=== PATIENT | male | born 1960 | race Hispanic/Latino ===

== ENCOUNTER 2017-01-12 18:19 | Emergency (ER) | payer OTHER ==
[2017-01-12 18:19] VITALS: BMI 25.1
[2017-01-12 18:27] VITALS: BP 132/75; PULSE 74; RESP 18; TEMP 98.2; O2SAT 99
[2017-01-12] MEDS ORDERED: Tobramycin 0.3% OPHT SOLN OS STA (19:07)
--- NOTE | 2017-01-12 19:12 | ED PDOC ---
Arrival/HPI - General Chief Complaint: Eye Problem Time Seen by Provider: 01/12/17 18:47 Historian: Patient - History of Present Illness Narrative History of Present Illness (Text): 01/12/17 19:39 A 56 year old male, whose past medical history includes asthma, diabetes, hyperlipidemia and hypertension, presents to the emergency department complaining of irritation, redness and foreign body sensation to left upper eyelid. Patient reports he was working at home, chopping wood without protective eye wear and felt a piece of wood flew into his eye. Denies any discharge, decrease in vision, contacts. Patient denies any other complaints at this time. Symptom Onset: Sudden Symptom Course: Unchanged Activities at Onset: Light Modifying Factors (Text): none Past Medical History - Provider Review Nursing Documentation Reviewed: Yes - Infectious Disease Hx of Infectious Diseases: None - Tetanus Immunization Tetanus Immunization: Unknown - Cardiac Hx Angina: Yes Hx Hypertension: Yes - Pulmonary Hx Asthma: Yes - Neurological Hx Neurological Disorder: No Hx Alzheimer's Disease: No HX Cerebrovascular Accident: No Hx Dementia: No Hx Migraine: No Hx Parkinson's Disease: No Hx Seizures: No Hx Transient Ischemic Attacks (TIA): No - HEENT Hx HEENT Disorder: No Hx Blind: No Hx Cataracts: No Hx Deafness: No Hx Difficulty Chewing: No Hx Epistaxis: No Hx Glaucoma: No Hx Macular Degeneration: No - Renal Hx Renal Disorder: No Hx Renal Failure: No - Endocrine/Metabolic Hx Diabetes Mellitus Type 2: Yes Hx Hyperthyroidism: No Hx Hypothyroidism: No - Hematological/Oncological Hx Blood Disorders: No Hx Anemia: No Hx Cancer: No Hx Hepatitis A: No Hx Hepatitis B: No Hx Hepatitis C: No - Integumentary Hx Dermatological Disorder: No Hx Basal Cell Carcinoma: No Hx Eczema: No Hx Melanoma: No Hx Psoriasis: No Hx Squamous Cell Carcinoma: No - Musculoskeletal/Rheumatological Hx Herniated Disk: Yes (bulging disk pinched nerve) - Gastrointestinal Hx Gastrointestinal Disorders: No Hx Crohn's Disease: No Hx Diverticulitis: No Hx Gastroesophageal Reflux: No Hx Gastrointestinal Ulcer: No Hx Liver Failure: No - Genitourinary/Gynecological Hx Genitourinary Disorders: No Hx Hematuria: No Hx Incontinence: No Hx Prostate Problems: No Hx Sexually Transmitted Diseases: No Hx Urinary Tract Infection: No - Psychiatric Hx Anxiety: Yes Hx Depression: No Hx Emotional Abuse: No Hx Physical Abuse: No Hx Substance Use: No - Surgical History Hx Amputation: No Hx Appendectomy: Yes Hx Cardiac Catheterization: No Hx Cholecystectomy: No Hx Coronary Stent: No Hx Gastric Bypass Surgery: No Hx Hysterectomy: No Hx Joint Replacement: No Hx Kidney Transplant: No Hx Liver Transplant: No Hx Mastectomy: No Hx Open Heart Surgery: No Hx Orthopedic Surgery: No Hx Splenectomy: No Hx Valve Replacement: No - Anesthesia Hx Anesthesia: Yes Hx Anesthesia Reactions: No Hx Malignant Hyperthermia: No - Suicidal Assessment Feels Threatened In Home Enviroment: No Family/Social History - Physician Review Nursing Documentation Reviewed: Yes Family/Social History: No Known Family HX Smoking Status: Heavy Smoker > 10 Cigarettes Daily Hx Alcohol Use: No Hx Substance Use: No Hx Substance Use Treatment: Yes Allergies/Home Meds Allergies/Adverse Reactions: Allergies No Known Allergies Allergy (Verified 01/12/17 18:30) Home Medications: Home Meds Medication Instructions Recorded Confirmed Alprazolam [Xanax] 0.5 mg PO DAILY 11/05/15 04/28/16 Oxymorphone HCl [Oxymorphone HCl 30 mg PO DAILY 11/05/15 04/28/16 ER] Review of Systems - Physician Review All systems were reviewed & negative as marked: Yes - Review of Systems Constitutional: absent: Fevers Eyes: Other (irritation, redness and foreign body sensation to left upper eyelid ). absent: Vision Changes Neurological: absent: Headache Physical Exam Vital Signs Reviewed: Yes Vital Signs Temp Pulse Resp BP Pulse Ox 01/12/17 18:26 98.2 F 74 18 132/75 99 Temperature: Afebrile Blood Pressure: Normal Pulse: Regular Respiratory Rate: Normal Appearance: Positive for: Well-Appearing, Non-Toxic, Comfortable Pain Distress: Mild Mental Status: Positive for: Alert and Oriented X 3 - Systems Exam Head: Present: Atraumatic, Normocephalic Pupils: Present: PERRL Extroacular Muscles: Present: EOMI Conjunctiva: Present: Injected, Other (small foreign body inside the left upper eyelid; no corneal abrasion) Mouth: Present: Moist Mucous Membranes Neck: Present: Normal Range of Motion Upper Extremity: Present: Normal Inspection. No: Cyanosis, Edema Lower Extremity: Present: Normal Inspection. No: Edema Neurological: Present: GCS=15, CN II-XII Intact, Speech Normal Skin: Present: Warm, Dry, Normal Color. No: Rashes Psychiatric: Present: Alert, Oriented x 3, Normal Insight, Normal Concentration Medical Decision Making ED Course and Treatment: 01/12/17 19:36 Impression: A 56 year old male with irritation, redness and foreign body sensation to left upper eyelid. Plan: -- Tobrex -- Reassess and disposition Prior Visits: Notes and results from previous visits were reviewed. Patient was last seen in the emergency department on 04/28/16 for evaluation of right testicular pain radiating to groin region. Progress Notes: Small foreign body in left upper eyelid was removed with Q-tip by PA. On re-evaluation, patient feels better, reports no FB sensation to the L eye, and is in no acute distress. Patient in agreement with plan to be discharged home. Patient is stable for discharge. Patient was instructed to follow up with physician or return if symptoms worsen or new concerning symptoms arise. - Medication Orders Current Medication Orders: Discontinued Medications Tobramycin Sulfate (Tobrex 0.3% Ophth Soln) 2 drop OS STAT STA Stop: 01/12/17 19:08 Last Admin: 01/12/17 19:26 Dose: 2 drop - PA / INSPECTOR MISSILE / Resident Statement MD/DO has reviewed & agrees with the documentation as recorded. - Scribe Statement The provider has reviewed the documentation as recorded by the Angel Romero Provider Scribe Attestation: All medical record entries made by the Scribe were at my direction and personally dictated by me. I have reviewed the chart and agree that the record accurately reflects my personal performance of the history, physical exam, medical decision making, and the department course for this patient. I have also personally directed, reviewed, and agree with the discharge instructions and disposition. Disposition/Present on Arrival - Present on Arrival Any Indicators Present on Arrival: No History of DVT/PE: No History of Uncontrolled Diabetes: No Urinary Catheter: No History of Decub. Ulcer: No History Surgical Site Infection Following: None - Disposition Have Diagnosis and Disposition been Completed?: Yes Diagnosis: Eye foreign body Disposition: HOME/ ROUTINE Disposition Time: 19:10 Patient Plan: Discharge Condition: STABLE Discharge Instructions (ExitCare): Eye Foreign Body (ED) Print Language: BRUNEIAN Additional Instructions: Thank you for letting us take care of you today. You were treated for eye foreign body. The emergency medical care you received today was directed at your acute symptoms. Continue eye drops - tobramycin 2 drops to the L eye every 4 hours x 7 days. It may take several days for your symptoms to resolve. Return to the Emergency Department if your symptoms worsen, do not improve, or if you have any other problems. Please contact your doctor in 2 days for re-evaluation and follow up / or call one of the physicians/clinics you have been referred to that are listed on the Patient Visit Information form that is included in your discharge packet. Bring any paperwork you were given at discharge with you along with any medications you are taking to your follow up visit. Our treatment cannot replace ongoing medical care by a primary care provider (PCP) outside of the emergency department. Thank you for allowing the [facility] team to be part of your care today. Referrals: Grabiel Humphreys MD [Staff Provider] - Follow up with primary Forms: 9+ (Greenlandic), WORK NOTE
== END 2017-01-12 19:29 | disposition home or self-care (01) ==
LOC: ED 18:19
DX: T15.12XA Foreign body in conjunctival sac, left eye, initial encounter (principal); X58.XXXA Exposure to other specified factors, initial encounter; Y93.89 Activity, other specified; Y92.009 Unspecified place in unspecified non-institutional (private) residence as the place of occurrence of the external cause

== ENCOUNTER 2017-03-08 22:05 | Emergency (ER) | payer OTHER ==
[2017-03-08 22:10] VITALS: BMI 25.7
[2017-03-08 22:11] VITALS: TEMP 97.7
--- NOTE | 2017-03-08 22:42 | ED PDOC ---
Arrival/HPI - General Chief Complaint: Upper Extremity Problem/Injury Time Seen by Provider: 03/08/17 22:16 Historian: Patient - History of Present Illness Narrative History of Present Illness (Text): 03/08/17 22:41 A 56 year old male, whose past medical history includes hyperlipidemia, asthma, hypertension, and diabetes, presents to the emergency department complaining of right lower back pain for the past week and left forearm pain for the past 3 weeks. Denies any injury or falls. Denies lifting heavy objects. Patient reports painful to bend or lift arm. Denies having these symptoms in the past. Reports to taking oxycodone daily for pain. Patient denies any leg swelling, neck pain, shoulder pain or any other complaints at this time. Time/Duration: 1 week, < month Symptom Onset: Sudden Symptom Course: Unchanged Activities at Onset: Rest Context: Home Past Medical History - Provider Review Nursing Documentation Reviewed: Yes - Infectious Disease Hx of Infectious Diseases: None - Tetanus Immunization Tetanus Immunization: Unknown - Cardiac Hx Angina: Yes Hx Hypertension: Yes - Pulmonary Hx Asthma: Yes - Neurological Hx Neurological Disorder: No Hx Alzheimer's Disease: No HX Cerebrovascular Accident: No Hx Dementia: No Hx Migraine: No Hx Parkinson's Disease: No Hx Seizures: No Hx Transient Ischemic Attacks (TIA): No - HEENT Hx HEENT Disorder: No Hx Blind: No Hx Cataracts: No Hx Deafness: No Hx Difficulty Chewing: No Hx Epistaxis: No Hx Glaucoma: No Hx Macular Degeneration: No - Renal Hx Renal Disorder: No Hx Renal Failure: No - Endocrine/Metabolic Hx Diabetes Mellitus Type 2: No Hx Hyperthyroidism: No Hx Hypothyroidism: No - Hematological/Oncological Hx Blood Disorders: No Hx Anemia: No Hx Cancer: No Hx Hepatitis A: No Hx Hepatitis B: No Hx Hepatitis C: No - Integumentary Hx Dermatological Disorder: No Hx Basal Cell Carcinoma: No Hx Eczema: No Hx Melanoma: No Hx Psoriasis: No Hx Squamous Cell Carcinoma: No - Musculoskeletal/Rheumatological Hx Herniated Disk: Yes (bulging disk pinched nerve) - Gastrointestinal Hx Gastrointestinal Disorders: No Hx Crohn's Disease: No Hx Diverticulitis: No Hx Gastroesophageal Reflux: No Hx Gastrointestinal Ulcer: No Hx Liver Failure: No - Genitourinary/Gynecological Hx Genitourinary Disorders: No Hx Hematuria: No Hx Incontinence: No Hx Prostate Problems: No Hx Sexually Transmitted Diseases: No Hx Urinary Tract Infection: No - Psychiatric Hx Anxiety: Yes Hx Depression: No Hx Emotional Abuse: No Hx Physical Abuse: No Hx Substance Use: No - Surgical History Hx Amputation: No Hx Appendectomy: Yes Hx Cardiac Catheterization: No Hx Cholecystectomy: No Hx Coronary Stent: No Hx Gastric Bypass Surgery: No Hx Hysterectomy: No Hx Joint Replacement: No Hx Kidney Transplant: No Hx Liver Transplant: No Hx Mastectomy: No Hx Open Heart Surgery: No Hx Orthopedic Surgery: No Hx Splenectomy: No Hx Valve Replacement: No - Anesthesia Hx Anesthesia: Yes Hx Anesthesia Reactions: No Hx Malignant Hyperthermia: No - Suicidal Assessment Feels Threatened In Home Enviroment: No Family/Social History - Physician Review Nursing Documentation Reviewed: Yes Family/Social History: Other (nc) Smoking Status: Heavy Smoker > 10 Cigarettes Daily Hx Alcohol Use: No Hx Substance Use: No Hx Substance Use Treatment: Yes Allergies/Home Meds Allergies/Adverse Reactions: Allergies No Known Allergies Allergy (Verified 03/08/17 22:10) Home Medications: Home Meds Medication Instructions Recorded Confirmed Alprazolam [Xanax] 0.5 mg PO DAILY 11/05/15 03/08/17 Oxymorphone HCl [Oxymorphone HCl 30 mg PO DAILY 11/05/15 03/08/17 ER] Review of Systems - Physician Review All systems were reviewed & negative as marked: Yes - Review of Systems Constitutional: absent: Fevers Genitourinary Male: Other (no incontinence or saddle anesthesia). absent: Urinary Output Changes Musculoskeletal: Back Pain (right lower back pain), Other (left forearm pain; no shoulder pain; no leg swelling). absent: Neck Pain Neurological: absent: Focal Weakness Physical Exam Vital Signs Reviewed: Yes Vital Signs Temp Pulse Resp BP Pulse Ox 03/08/17 22:11 97.7 F 81 18 187/100 H 98 03/08/17 22:10 97.7 F 84 17 187/100 H 98 Appearance: Positive for: Well-Appearing, Non-Toxic, Comfortable Pain Distress: None Mental Status: Positive for: Alert and Oriented X 3 - Systems Exam Head: Present: Atraumatic, Normocephalic Pupils: Present: PERRL Extroacular Muscles: Present: EOMI Conjunctiva: Present: Normal Mouth: Present: Moist Mucous Membranes Neck: Present: Normal Range of Motion Respiratory/Chest: Present: Clear to Auscultation, Good Air Exchange. No: Respiratory Distress, Accessory Muscle Use Cardiovascular: Present: Regular Rate and Rhythm, Normal S1, S2. No: Murmurs Abdomen: Present: Normal Bowel Sounds. No: Tenderness, Distention, Peritoneal Signs Back: Present: Other (right lumbar lower thoracic paraspinous muscle tenderness) Upper Extremity: Present: NORMAL PULSES, Other (tenderness left brachial radialis muscle; normal sensation and strength; no induration; muscles soft). No: Cyanosis, Edema, Erythema Lower Extremity: Present: Normal Inspection. No: Edema Neurological: Present: GCS=15, CN II-XII Intact, Motor Func Grossly Intact, Normal Sensory Function, Other (no focal deficits) Skin: Present: Warm, Dry, Normal Color. No: Rashes Psychiatric: Present: Alert, Oriented x 3, Normal Insight, Normal Concentration Medical Decision Making ED Course and Treatment: 03/08/17 23:27 EKG: Ordered, reviewed, and independently interpreted the EKG. Rate : 70 BPM Rhythm : NSR Interpretation : normal axis, no acute ischemia 03/08/17 23:28 Chest xray: No acute process, as read by me. Radiology of left forearm: No acute fracture, as read by me. 03/08/17 23:48 disc results w pt who is resting quietly in no distress. disc importance of close follow up with pmd and also rec f/u w ortho for continued outpt eval. return precautions advised. pt v/u. - Lab Interpretations Lab Results: 03/08/17 23:00 03/08/17 23:00 Lab Results 03/08/17 23:00: Sodium 142, Potassium 4.3, Chloride 106, Carbon Dioxide 27, Anion Gap 13, BUN 16, Creatinine 1.2, Est GFR ( Amer) > 60, Est GFR (Non- Af Amer) > 60, Random Glucose 98, Calcium 9.1, Total Bilirubin 0.6, AST 24, ALT 26, Alkaline Phosphatase 70, Troponin I 0.01, Total Protein 7.1, Albumin 4.0, Globulin 3.1, Albumin/Globulin Ratio 1.3 03/08/17 23:00: WBC 10.5 D, RBC 4.37, Hgb 14.2, Hct 40.9 L, MCV 93.6, MCH 32.5 , MCHC 34.7, RDW 12.8, Plt Count 233, MPV 9.6, Gran % 66.9, Lymph % (Auto) 26.4 , [place]imer % (Auto) 6.1 H, Eos % (Auto) 0.4 L, Baso % (Auto) 0.2, Gran # 7.04 H, Lymph # 2.8, Latimer # 0.6, Eos # 0.0, Baso # 0.02 I have reviewed the lab results: Yes - RAD Interpretation Radiology Orders: 03/08/17 22:31 FOREARM LEFT [RAD] Stat 03/08/17 22:32 CHEST TWO VIEWS (PA/LAT) [RAD] Stat - EKG Interpretation Interpreted by ED Physician: Yes Type: 12 lead EKG - Medication Orders Current Medication Orders: Discontinued Medications Ketorolac Tromethamine (Toradol) 15 mg IVP STAT STA Stop: 03/08/17 22:33 Last Admin: 03/08/17 23:00 Dose: 15 mg MAR Pain Assessment Document 03/08/17 23:00 HI (Rec: 03/08/17 23:00 [place] [id number]) Pain Reassessment Is this a pain reassessment? No Sleep Is patient sleeping during reassessment? No Presence of Pain Presence of Pain Yes Location Left, Right or Bilateral Left Pain Location Body Site Arm IVP Administration Document 03/08/17 23:00 HI (Rec: 03/08/17 23:00 [place] [id number]) Charges for Administration # of IVP Administrations 1 - Scribe Statement The provider has reviewed the documentation as recorded by the Angel Romero Provider Scribe Attestation: All medical record entries made by the Scribe were at my direction and personally dictated by me. I have reviewed the chart and agree that the record accurately reflects my personal performance of the history, physical exam, medical decision making, and the department course for this patient. I have also personally directed, reviewed, and agree with the discharge instructions and disposition. Disposition/Present on Arrival - Present on Arrival Any Indicators Present on Arrival: No History of DVT/PE: No History of Uncontrolled Diabetes: No Urinary Catheter: No History of Decub. Ulcer: No History Surgical Site Infection Following: None - Disposition Have Diagnosis and Disposition been Completed?: Yes Diagnosis: Arm pain, Back pain Disposition: HOME/ ROUTINE Disposition Time: 23:50 Condition: STABLE Forms: Tackk (Malagasy)
[2017-03-08 23:14] LABS: BASO # 0.02 K/mm3 (0.0-2.0); BASO % 0.2 % (0.0-3.0); EOS % 0.4 % (1.5-5.0); GRAN # 7.04 (1.4-6.5); GRAN % 66.9 % (50.0-68.0); HEMATOCRIT 40.9 % (42.0-52.0); LYMPH # 2.8 (1.2-3.4); LYMPH % 26.4 % (22.0-35.0); MEAN CELL VOLUME 93.6 fl (80.0-105.0); MEAN CORPUSCULAR HEMOGLOBIN 32.5 pg (25.0-35.0); MEAN CORPUSCULAR HGB CONC 34.7 g/dl (31.0-37.0); MEAN PLATELET VOLUME 9.6 fl (7.0-11.0); MONO # 0.6 (0.1-0.6); MONO % 6.1 % (1.0-6.0); RED CELL DISTRIBUTION WIDTH 12.8 % (11.5-14.5); WHITE BLOOD COUNT 10.5 10^3/ul (4.5-11.0)
[2017-03-08 23:21] LABS: ALB/GLOB RATIO 1.3 (1.1-1.8); ALKALINE PHOSPHATASE 70 U/L (38-126); ALT/SGPT 26 U/L (7-56); AST/SGOT 24 U/L (17-59); BILIRUBIN,TOTAL 0.6 mg/dL (0.2-1.3); BLOOD UREA NITROGEN 16 mg/dL (7-21); CALCIUM 9.1 mg/dL (8.4-10.5); CARBON DIOXIDE 27 mmol/L (21-33); CHLORIDE 106 mmol/L (98-107); GFR AFRICAN-AMERICAN > 60; GLUCOSE,RANDOM 98 mg/dL (70-110); POTASSIUM 4.3 mmol/L (3.6-5.0); SODIUM 142 mmol/L (132-148); TOTAL PROTEIN 7.1 g/dL (5.8-8.3)
[2017-03-08 23:32] LABS: TROPONIN I 0.01 ng/mL
[2017-03-09 01:30] VITALS: BP 158/90; PULSE 86; RESP 16; O2SAT 99
--- NOTE | 2017-03-09 09:08 | RAD ---
HISTORY: mid back pain COMPARISON: 02/06/2016 TECHNIQUE: Chest PA and lateral FINDINGS: LUNGS: No active pulmonary disease. PLEURA: No significant pleural effusion identified. No pneumothorax apparent. CARDIOVASCULAR: Normal. OSSEOUS STRUCTURES: No significant abnormalities. VISUALIZED UPPER ABDOMEN: Normal. OTHER FINDINGS: None. IMPRESSION: No active disease.
--- NOTE | 2017-03-09 09:10 | RAD ---
PROCEDURE: Radiographs of the Left Forearm HISTORY: pain COMPARISON: None available. TECHNIQUE: Frontal and lateral views obtained. FINDINGS: BONES: No fracture or destructive lesion. JOINT SPACES: Unremarkable. OTHER FINDINGS: None. IMPRESSION: Unremarkable radiographs of the left forearm.
--- NOTE | 2017-03-09 18:24 | CARD ---
APPROVED REPORT EKG Measurement Heart [id number] [id number] <Conclusion> Sinus rhythm with APCs Incomplete right bundle branch block Prolonged QT Abnormal ECG
== END 2017-03-08 23:55 | disposition home or self-care (01) ==
LOC: ED 22:05
DX: M54.5 Low back pain (principal); M79.602 Pain in left arm; I10 Essential (primary) hypertension; F17.210 Nicotine dependence, cigarettes, uncomplicated
CPT/HCPCS: 71020; 73090; 80053; 84484; 85025; 93005; 96374; 99284; J1885

== ENCOUNTER 2017-03-14 11:05 | Emergency (ER) | payer OTHER ==
[2017-03-14 12:23] VITALS: BMI 25.1
--- NOTE | 2017-03-14 13:31 | ED PDOC ---
Arrival/HPI - General Time Seen by Provider: 03/14/17 11:10 Historian: Patient - History of Present Illness Narrative History of Present Illness (Text): pt stated having dizziness w room. 03/14/17 13:24 Past Medical History - Provider Review Nursing Documentation Reviewed: Yes - Travel History Have you recently traveled outside [place] w/in the past 3 mons?: No - Infectious Disease Hx of Infectious Diseases: None - Tetanus Immunization Tetanus Immunization: Unknown - Cardiac Hx Angina: Yes Hx Hypertension: Yes - Pulmonary Hx Asthma: Yes - Neurological Hx Neurological Disorder: No Hx Alzheimer's Disease: No HX Cerebrovascular Accident: No Hx Dementia: No Hx Migraine: No Hx Parkinson's Disease: No Hx Seizures: No Hx Transient Ischemic Attacks (TIA): No - HEENT Hx HEENT Disorder: No Hx Blind: No Hx Cataracts: No Hx Deafness: No Hx Difficulty Chewing: No Hx Epistaxis: No Hx Glaucoma: No Hx Macular Degeneration: No - Renal Hx Renal Disorder: No Hx Renal Failure: No - Endocrine/Metabolic Hx Diabetes Mellitus Type 2: No Hx Hyperthyroidism: No Hx Hypothyroidism: No - Hematological/Oncological Hx Blood Disorders: No Hx Anemia: No Hx Cancer: No Hx Hepatitis A: No Hx Hepatitis B: No Hx Hepatitis C: No - Integumentary Hx Dermatological Disorder: No Hx Basal Cell Carcinoma: No Hx Eczema: No Hx Melanoma: No Hx Psoriasis: No Hx Squamous Cell Carcinoma: No - Musculoskeletal/Rheumatological Hx Herniated Disk: Yes (bulging disk pinched nerve) - Gastrointestinal Hx Gastrointestinal Disorders: No Hx Crohn's Disease: No Hx Diverticulitis: No Hx Gastroesophageal Reflux: No Hx Gastrointestinal Ulcer: No Hx Liver Failure: No - Genitourinary/Gynecological Hx Genitourinary Disorders: No Hx Hematuria: No Hx Incontinence: No Hx Prostate Problems: No Hx Sexually Transmitted Diseases: No Hx Urinary Tract Infection: No - Psychiatric Hx Anxiety: Yes Hx Depression: No Hx Emotional Abuse: No Hx Physical Abuse: No Hx Substance Use: No - Surgical History Hx Amputation: No Hx Appendectomy: Yes Hx Cardiac Catheterization: No Hx Cholecystectomy: No Hx Coronary Stent: No Hx Gastric Bypass Surgery: No Hx Hysterectomy: No Hx Joint Replacement: No Hx Kidney Transplant: No Hx Liver Transplant: No Hx Mastectomy: No Hx Open Heart Surgery: No Hx Orthopedic Surgery: No Hx Splenectomy: No Hx Valve Replacement: No - Anesthesia Hx Anesthesia: Yes Hx Anesthesia Reactions: No Hx Malignant Hyperthermia: No - Suicidal Assessment Feels Threatened In Home Enviroment: No Family/Social History - Physician Review Nursing Documentation Reviewed: Yes Family/Social History: No Known Family HX Smoking Status: Heavy Smoker > 10 Cigarettes Daily Hx Alcohol Use: No Hx Substance Use: No Hx Substance Use Treatment: Yes Allergies/Home Meds Allergies/Adverse Reactions: Allergies No Known Allergies Allergy (Verified 03/08/17 22:10) Home Medications: Home Meds Medication Instructions Recorded Confirmed Alprazolam [Xanax] 0.5 mg PO DAILY 11/05/15 03/08/17 Oxymorphone HCl [Oxymorphone HCl 30 mg PO DAILY 11/05/15 03/08/17 ER] Review of Systems - Review of Systems Constitutional: Normal Eyes: Normal ENT: Normal Respiratory: Normal Cardiovascular: Normal Gastrointestinal: Normal Genitourinary Male: Normal Musculoskeletal: Other (left forearm tenditis w resultant weakness) Skin: Normal Neurological: Dizziness Endocrine: Normal Hemo/Lymphatic: Normal Psychiatric: Normal Physical Exam Appearance: Positive for: Well-Appearing, Non-Toxic, Comfortable Pain Distress: None Mental Status: Positive for: Alert and Oriented X 3 - Systems Exam Head: Present: Atraumatic, Normocephalic Pupils: Present: PERRL Extroacular Muscles: Present: EOMI Conjunctiva: Present: Normal Ears: Present: Normal Mouth: Present: Moist Mucous Membranes Pharnyx: Present: Normal Nose (External): Present: Atraumatic Nose (Internal): Present: Normal Inspection Neck: Present: Normal Range of Motion Respiratory/Chest: Present: Clear to Auscultation, Good Air Exchange Cardiovascular: Present: Regular Rate and Rhythm Abdomen: No: Tenderness, Distention, Normal Bowel Sounds, Peritoneal Signs, Rebound, Guarding, McBurney's Point Tender, Rovsing's Sign Present, Hernias, Feeding Tubes, Ostomy Tubes, Mass/Organomegaly, Scars, Other Back: Present: Normal Inspection Upper Extremity: Present: Other (left upper extremity from, with mild weakness in the left forearm otherwise pin/warm/cap refill/radial pulse+.) Lower Extremity: Present: Normal Inspection Neurological: Present: GCS=15, CN II-XII Intact, Speech Normal, Motor Func Grossly Intact Skin: Present: Warm, Normal Color Psychiatric: Present: Alert, Oriented x 3, Normal Insight, Normal Concentration Medical Decision Making ED Course and Treatment: pt with dizziness. pt stated lue tenditis with weakness as resultant. pt stated didn't want to stay for full NIHSS assessment/labwork/ct imaging/ekg work-up and observation. pt cautioned for complications/. signed refusal of treatment per Nurse Fanny. pt wanted to leave right at this point. 03/14/17 13:33 03/14/17 13:36 Disposition/Present on Arrival - Present on Arrival Any Indicators Present on Arrival: No History of DVT/PE: No History of Uncontrolled Diabetes: No Urinary Catheter: No History Surgical Site Infection Following: None - Disposition Have Diagnosis and Disposition been Completed?: Yes Diagnosis: Dizziness Disposition: AGAINST MEDICAL ADVICE Disposition Time: 13:37 Condition: SERIOUS Referrals: PCP,NO [Primary Care Provider] - Follow up with primary
--- NOTE | 2017-03-15 09:59 | CARD ---
APPROVED REPORT EKG Measurement Heart [id number] <Conclusion> Sinus rhythm with premature atrial complexes Nonspecific T wave abnormality No change
== END 2017-03-14 12:23 | disposition left against medical advice (07) ==
LOC: ED 11:05
DX: R42 Dizziness and giddiness (principal); I10 Essential (primary) hypertension; F17.210 Nicotine dependence, cigarettes, uncomplicated

== ENCOUNTER 2017-07-09 15:03 | Emergency (ER) | payer OTHER ==
[2017-07-09 15:03] VITALS: BMI 25.1
== END 2017-07-09 15:30 | disposition left against medical advice (07) ==
LOC: ED 15:03
DX: Z02.89 Encounter for other administrative examinations (principal); K08.89 Other specified disorders of teeth and supporting structures

== ENCOUNTER 2018-03-22 23:01 | Inpatient (IN) | payer OTHER ==
--- NOTE | 2018-03-22 23:22 | ED PDOC ---
Past Medical History - Infectious Disease Hx of Infectious Diseases: None - Tetanus Immunization Tetanus Immunization: Unknown - Cardiac Hx Hypertension: Yes - Pulmonary Hx Asthma: Yes - Neurological Hx Neurological Disorder: No Hx Alzheimer's Disease: No HX Cerebrovascular Accident: No Hx Dementia: No Hx Migraine: No Hx Parkinson's Disease: No Hx Seizures: No Hx Transient Ischemic Attacks (TIA): No - HEENT Hx HEENT Disorder: No Hx Blind: No Hx Cataracts: No Hx Deafness: No Hx Difficulty Chewing: No Hx Epistaxis: No Hx Glaucoma: No Hx Macular Degeneration: No - Renal Hx Renal Disorder: No Hx Renal Failure: No - Endocrine/Metabolic Hx Diabetes Mellitus Type 2: No Hx Hyperthyroidism: No Hx Hypothyroidism: No - Hematological/Oncological Hx Blood Disorders: No Hx Anemia: No Hx Cancer: No Hx Hepatitis A: No Hx Hepatitis B: No Hx Hepatitis C: No - Integumentary Hx Dermatological Disorder: No Hx Basal Cell Carcinoma: No Hx Eczema: No Hx Melanoma: No Hx Psoriasis: No Hx Squamous Cell Carcinoma: No - Musculoskeletal/Rheumatological Hx Herniated Disk: Yes (bulging disk pinched nerve) - Gastrointestinal Hx Gastrointestinal Disorders: No Hx Crohn's Disease: No Hx Diverticulitis: No Hx Gastroesophageal Reflux: No Hx Liver Failure: No - Genitourinary/Gynecological Hx Genitourinary Disorders: No Hx Hematuria: No Hx Incontinence: No Hx Prostate Problems: No Hx Sexually Transmitted Diseases: No Hx Urinary Tract Infection: No - Psychiatric Hx Anxiety: Yes Hx Depression: No Hx Emotional Abuse: No Hx Physical Abuse: No Hx Substance Use: No - Surgical History Hx Amputation: No Hx Appendectomy: Yes Hx Cardiac Catheterization: No Hx Cholecystectomy: No Hx Coronary Stent: No Hx Gastric Bypass Surgery: No Hx Hysterectomy: No Hx Joint Replacement: No Hx Kidney Transplant: No Hx Liver Transplant: No Hx Mastectomy: No Hx Open Heart Surgery: No Hx Orthopedic Surgery: No Hx Splenectomy: No Hx Valve Replacement: No - Anesthesia Hx Anesthesia: Yes Hx Anesthesia Reactions: No Hx Malignant Hyperthermia: No - Suicidal Assessment Feels Threatened In Home Enviroment: No Family/Social History Smoking Status: Heavy Smoker > 10 Cigarettes Daily Hx Alcohol Use: No Hx Substance Use: No Hx Substance Use Treatment: Yes Allergies/Home Meds Allergies/Adverse Reactions: Allergies No Known Allergies Allergy (Verified 03/22/18 23:08) Home Medications: Home Meds Medication Instructions Recorded Confirmed Alprazolam [Xanax] 0.5 mg PO DAILY 11/05/15 03/22/18 oxyCODONE [oxyCODONE Immediate 30 mg PO TID 12/15/17 03/22/18 Release Tab] Hydromorphone HCl [Dilaudid] 8 mg PO BID 03/22/18 03/22/18 Physical Exam Vital Signs Temp Pulse Resp BP Pulse Ox 03/22/18 23:06 99.8 F H 76 18 144/89 98 Disposition/Present on Arrival - Present on Arrival History of DVT/PE: No History of Uncontrolled Diabetes: No Urinary Catheter: No History of Decub. Ulcer: No History Surgical Site Infection Following: None - Disposition
[2018-03-22] MEDS ORDERED: Albuterol-Ipratrop 3 mg / 0.5 (3 ml) UD IH STA (23:24)
--- NOTE | 2018-03-22 23:32 | ED PDOC ---
Arrival/HPI - General Historian: Patient - History of Present Illness Narrative History of Present Illness (Text): 03/22/18 23:26 57 y/o M with PMHx of COPD not home O2, HTN, HLD, Anxiety presents to ED with complaints of SOB, cough without productive sputum, wheezing, body-aches, non- radiating substernal chest tightness with associated fevers and chills that started last night. Pt reports he tried ibuprofen without any relief. Denies taking aspirin, inhalers or steroids recently. He was scheduled to undergo stress test at [facility] today which was cancelled d/t patients underlying weakness. He denies headache, dizziness, palpitations, diaphoresis, nausea, vomiting, constipation, diarrhea, dysuria. PMH: COPD, Asthma, anxiety, HTN, HLD, DM (questionable), lumbar disc herniation PSH: appendectomy Social: 2 packs of cigarettes for past 20 years, denied alcohol or illicit drug use Allergies: NKDA Medications: (per pt): dilaudid, oxycodone, anti-hypertensive Family history: mother had unknown heart condition, sister had CABG, father in 50s with unknown cancer PMD: Dr. Díaz Pharmacy: [facility] ([place] ) 03/23/18 00:51 Time/Duration: Prior to Arrival Symptom Onset: Gradual Symptom Course: Unchanged Quality: Tightness Severity Level: Moderate Activities at Onset: Rest <Paras Luis - Last Filed: 03/23/18 01:00> <Dallin Kaminski - Last Filed: 03/25/18 01:07> - General Chief Complaint: Shortness Of Breath Past Medical History - Provider Review Nursing Documentation Reviewed: Yes - Infectious Disease Hx of Infectious Diseases: None - Tetanus Immunization Tetanus Immunization: Unknown - Cardiac Hx Hypertension: Yes - Pulmonary Hx Asthma: Yes - Neurological Hx Neurological Disorder: No Hx Alzheimer's Disease: No HX Cerebrovascular Accident: No Hx Dementia: No Hx Migraine: No Hx Parkinson's Disease: No Hx Seizures: No Hx Transient Ischemic Attacks (TIA): No - HEENT Hx HEENT Disorder: No Hx Blind: No Hx Cataracts: No Hx Deafness: No Hx Difficulty Chewing: No Hx Epistaxis: No Hx Glaucoma: No Hx Macular Degeneration: No - Renal Hx Renal Disorder: No Hx Renal Failure: No - Endocrine/Metabolic Hx Diabetes Mellitus Type 2: No Hx Hyperthyroidism: No Hx Hypothyroidism: No - Hematological/Oncological Hx Blood Disorders: No Hx Anemia: No Hx Cancer: No Hx Hepatitis A: No Hx Hepatitis B: No Hx Hepatitis C: No - Integumentary Hx Dermatological Disorder: No Hx Basal Cell Carcinoma: No Hx Eczema: No Hx Melanoma: No Hx Psoriasis: No Hx Squamous Cell Carcinoma: No - Musculoskeletal/Rheumatological Hx Herniated Disk: Yes (bulging disk pinched nerve) - Gastrointestinal Hx Gastrointestinal Disorders: No Hx Crohn's Disease: No Hx Diverticulitis: No Hx Gastroesophageal Reflux: No Hx Liver Failure: No - Genitourinary/Gynecological Hx Genitourinary Disorders: No Hx Hematuria: No Hx Incontinence: No Hx Prostate Problems: No Hx Sexually Transmitted Diseases: No Hx Urinary Tract Infection: No - Psychiatric Hx Anxiety: Yes Hx Depression: No Hx Emotional Abuse: No Hx Physical Abuse: No Hx Substance Use: No - Surgical History Hx Amputation: No Hx Appendectomy: Yes Hx Cardiac Catheterization: No Hx Cholecystectomy: No Hx Coronary Stent: No Hx Gastric Bypass Surgery: No Hx Hysterectomy: No Hx Joint Replacement: No Hx Kidney Transplant: No Hx Liver Transplant: No Hx Mastectomy: No Hx Open Heart Surgery: No Hx Orthopedic Surgery: No Hx Splenectomy: No Hx Valve Replacement: No - Anesthesia Hx Anesthesia: Yes Hx Anesthesia Reactions: No Hx Malignant Hyperthermia: No - Suicidal Assessment Feels Threatened In Home Enviroment: No <Paras Luis - Last Filed: 03/23/18 01:00> Family/Social History - Physician Review Nursing Documentation Reviewed: Yes Family/Social History: Unknown Family HX Smoking Status: Heavy Smoker > 10 Cigarettes Daily Hx Alcohol Use: No Hx Substance Use: No Hx Substance Use Treatment: Yes <Paras Luis - Last Filed: 03/23/18 01:00> Allergies/Home Meds <Paras Luis - Last Filed: 03/23/18 01:00> <Dallin Kaminski - Last Filed: 03/25/18 01:07> Allergies/Adverse Reactions: Allergies No Known Allergies Allergy (Verified 03/22/18 23:08) Home Medications: Home Meds Medication Instructions Recorded Confirmed RX: Alprazolam [Xanax] 0.5 mg PO DAILY 11/05/15 03/22/18 RX: oxyCODONE [oxyCODONE Immediate 30 mg PO TID 12/15/17 03/22/18 Release Tab] Hydromorphone HCl [Dilaudid] 8 mg PO BID 03/22/18 03/22/18 Review of Systems - Review of Systems Constitutional: Fatigue, Other (body aches) Eyes: Normal ENT: Normal Respiratory: SOB, Cough Cardiovascular: Chest Pain (substernal, non-radiating) Gastrointestinal: Normal Genitourinary Male: Normal Musculoskeletal: Other (body aches) Skin: Normal Neurological: Normal Endocrine: Normal. absent: Diaphoresis Hemo/Lymphatic: Normal Psychiatric: Normal <Paras Luis Filed: 03/23/18 01:00> Physical Exam Vital Signs Reviewed: Yes Vital Signs Temp Pulse Resp BP Pulse Ox 03/22/18 23:06 99.8 F H 76 18 144/89 98 Temperature: Afebrile Blood Pressure: Normal Pulse: Regular Respiratory Rate: Normal Appearance: Positive for: Well-Appearing, Non-Toxic, Comfortable Pain Distress: None Mental Status: Positive for: Alert and Oriented X 3 - Systems Exam Head: Present: Atraumatic, Normocephalic Pupils: Present: PERRL Extroacular Muscles: Present: EOMI Conjunctiva: Present: Normal Mouth: Present: Moist Mucous Membranes Neck: Present: Normal Range of Motion Respiratory/Chest: Present: Wheezes, Rhonchi Cardiovascular: Present: Normal S1, S2, Other (PACs noted). No: Murmurs Abdomen: No: Tenderness, Distention, Peritoneal Signs Back: Present: Normal Inspection Upper Extremity: Present: Normal Inspection. No: Cyanosis, Edema Lower Extremity: Present: Normal Inspection. No: Edema Neurological: Present: GCS=15, CN II-XII Intact, Speech Normal Skin: Present: Warm, Dry, Normal Color. No: Rashes Psychiatric: Present: Alert, Oriented x 3, Normal Insight, Normal Concentration <Paras Luis Filed: 03/23/18 01:00> Vital Signs Temp Pulse Resp BP Pulse Ox 03/23/18 02:15 99 F 81 18 140/78 96 03/23/18 00:49 98.6 F 81 18 144/80 94 L 03/22/18 23:11 18 98 03/22/18 23:06 99.8 F H 76 18 144/89 98 <Dallin Kaminski Filed: 03/25/18 01:07> Medical Decision Making ED Course and Treatment: 03/22/18 23:36 Impressoin: 57 y/o M with PMHx of COPD, Asthma, HTN, Anxiety presenting with COPD exacerbation and chest pain Differential diagnosis includes, but not limited to: COPD exacerbation Asthma exacerbation Acute coronary syndome Plan: Labs cultures EKG Chest xray Duoneb tx Solu-medrol Rapid flu Reassess & dispo Progress Notes: 03/22/18 23:55 Chest xray reviewed: no signs of aortic dissection. Aspirin 325mg administered 03/23/18 00:[address] Robert Thompson and night resident. Pt accepted to hospitalist service, will transfer to telemetry, - RAD Interpretation Narrative RAD Interpretations (Text): 03/23/18 01:01 Chest Xray: No acute abnormalities Radiology Orders: 03/22/18 23:24 CHEST PORTABLE [RAD] Stat Clinic Manager: ED Physician - EKG Interpretation EKG Interpretation (Text): 03/22/18 23:38 Sinus rhythm w/ premature atrial complexes Otherwise normal ECG Vent rate: 72 bpm QTc: 433ms Interpreted by ED Physician: Yes Type: 12 lead EKG - Medication Orders Current Medication Orders: Discontinued Medications Albuterol/Ipratropium (Duoneb 3 Mg/0.5 Mg (3 Ml) Ud) 3 ml IH STAT STA Stop: 03/22/18 23:25 Methylprednisolone (Solu-Medrol) 125 mg IVP STAT STA Stop: 03/22/18 23:25 <Paras Luis - Last Filed: 03/23/18 01:00> - Lab Interpretations Lab Results: 03/22/18 23:24 03/22/18 23:24 Lab Results 03/22/18 23:24: Influenza Typ A,B (EIA) Negative for flu a/b 03/22/18 23:24: Sodium 140, Potassium 3.9, Chloride 109 H, Carbon Dioxide 27, Anion Gap 8 L, BUN 21, Creatinine 1.2, Est GFR ( Amer) > 60, Est GFR (Non-Af Amer) > 60, Random Glucose 100, Calcium 8.8, Phosphorus 3.7, Magnesium 1.9, Total Bilirubin 0.4, AST 15 L D, ALT 21, Alkaline Phosphatase 70, Troponin I < 0.01, Total Protein 6.7, Albumin 3.8, Globulin 2.9, Albumin/Globulin Ratio 1.3 03/22/18 23:24: WBC 5.4 D, RBC 4.47, Hgb 14.6, Hct 41.8 L, MCV 93.5, MCH 32.7, MCHC 34.9, RDW 12.9, Plt Count 190, MPV 9.8, Gran % 45.8 L, Lymph % (Auto) 38.3 H, Gregory % (Auto) 13.8 H, Eos % (Auto) 1.5, Baso % (Auto) 0.6, Gran # 2.45, Lymph # (Auto) 2.1, Gregory # (Auto) 0.7 H, Eos # (Auto) 0.1, Baso # (Auto) 0.03 - RAD Interpretation Radiology Orders: 03/22/18 23:28 CHEST TWO VIEWS (PA/LAT) [RAD] Stat - Medication Orders Current Medication Orders: Acetaminophen (Tylenol 325mg Tab) 650 mg PO Q6H PRN PRN Reason: Headache Albuterol/Ipratropium (Duoneb 3 Mg/0.5 Mg (3 Ml) Ud) 3 ml IH [id number] [facility] Last Admin: 03/24/18 19:37 Dose: 3 ml Albuterol/Ipratropium (Duoneb 3 Mg/0.5 Mg (3 Ml) Ud) 3 ml IH Q2H PRN PRN Reason: Shortness of Breath Alprazolam (Xanax) 0.5 mg PO HS PRN; Protocol PRN Reason: Anxiety Last Admin: 03/24/18 21:41 Dose: 0.5 mg Behavioural Document 03/24/18 21:41 TTC (Rec: 03/24/18 21:41 TTC [id number]) Maintenance Maintenance Dose No Nonmedicinal Nonmedicinal Interventions Redirect Behavior Behavior for Medication: Anxiety Aspirin (Ecotrin) 81 mg PO DAILY [facility] Last Admin: 03/24/18 09:58 Dose: 81 mg Atorvastatin Calcium (Lipitor) 40 mg PO DIN [facility] Last Admin: 03/24/18 17:40 Dose: 40 mg Benzocaine/Menthol (Cepacol Sore Throat) 1 marion MT Q2H PRN PRN Reason: Sore Throat Last Admin: 03/23/18 14:11 Dose: 1 marion Famotidine (Pepcid) 20 mg PO BID [facility] Last Admin: 03/24/18 17:40 Dose: 20 mg Guaifenesin (Robitussin) 100 mg PO Q4H PRN PRN Reason: Cough Last Admin: 03/24/18 21:41 Dose: 100 mg Heparin Sodium (Porcine) (Heparin) 5,000 units SC Q8 [facility]EIGN; Protocol Last Admin: 03/24/18 21:41 Dose: Not Given Non-Admin Reason: Patient Refused Ceftriaxone Sodium (Rocephin 1 Gram Ivpb) 1 gm in 100 mls @ 100 mls/hr IVPB DAILY [facility]; Protocol Last Admin: 03/24/18 09:58 Dose: 100 mls/hr eMAR Start Stop Document 03/24/18 09:58 RT (Rec: 03/24/18 09:58 RT [id number]) Intravenous Solution Start Date 03/24/18 Start Time 09:58 End Date 03/24/18 End time 10:55 Total Infusion Time 57 Azithromycin (Zithromax 500mg In Ns) 500 mg in 250 mls @ 167 mls/hr IVPB DAILY [facility]EIGN; Protocol Last Admin: 03/24/18 11:58 Dose: 167 mls/hr eMAR Start Stop Document 03/24/18 11:58 RT (Rec: 03/24/18 11:58 RT [id number]) Intravenous Solution Start Date 03/24/18 Start Time 11:58 End Date 03/24/18 End time 13:30 Total Infusion Time 92 Methylprednisolone (Solu-Medrol) 40 mg IVP Q12 [facility]EIGN Last Admin: 03/24/18 21:35 Dose: 40 mg IVP Administration Document 03/24/18 21:35 TTC (Rec: 03/24/18 21:35 TTC [id number]) Charges for Administration # of IVP Administrations 1 Nicotine (Nicoderm Cq) 1 patch TD DAILY [facility] Last Admin: 03/24/18 10:30 Dose: 1 patch MAR Transdermal Patch Site Document 03/24/18 10:30 RT (Rec: 03/24/18 11:22 RT [id number]) Transdermal Patch Site Transdermal Patch Site Left Shoulder Oxycodone HCl (Oxycodone Immediate Release Tab) 10 mg PO Q8H PRN PRN Reason: Pain, severe (8-10) Last Admin: 03/24/18 21:41 Dose: 10 mg MAR Pain Assessment Document 03/24/18 21:41 TTC (Rec: 03/24/18 21:42 TTC [id number]) Pain Reassessment Is this a pain reassessment? Yes Sleep Is patient sleeping during reassessment? No Presence of Pain Presence of Pain Yes Discontinued Medications Acetaminophen (Tylenol 325mg Tab) 650 mg PO Q6H PRN PRN Reason: Pain, moderate (4-7) Acetaminophen (Tylenol 325mg Tab) 650 mg PO Q6H [facility]EIGN Last Admin: 03/24/18 03:00 Dose: Not Given Non-Admin Reason: Patient Refused Albuterol/Ipratropium (Duoneb 3 Mg/0.5 Mg (3 Ml) Ud) 3 ml IH STAT STA Stop: 03/22/18 23:25 Last Admin: 03/22/18 23:30 Dose: 3 ml Albuterol/Ipratropium (Duoneb 3 Mg/0.5 Mg (3 Ml) Ud) 3 ml IH STAT STA Stop: 03/23/18 00:52 Last Admin: 03/23/18 00:56 Dose: 3 ml Aspirin (Aspirin) 325 mg PO STAT STA Stop: 03/22/18 23:52 Last Admin: 03/23/18 00:21 Dose: 325 mg Methylprednisolone (Solu-Medrol) 125 mg IVP STAT STA Stop: 03/22/18 23:25 Last Admin: 03/22/18 23:35 Dose: 125 mg IVP Administration Document 03/22/18 23:35 (Rec: 03/22/18 23:37 [id number]) Charges for Administration # of IVP Administrations 1 <Dallin Kaminski - Last Filed: 03/25/18 01:07> - PA / HIGH TENSION TESTER / Resident Statement FIGUEROA has reviewed & agrees with the documentation as recorded. FIGUEROA has examined the patient and agrees with the treatment plan. <Paras Luis - Last Filed: 03/23/18 01:00> - PA / HIGH TENSION TESTER / Resident Statement FIGUEROA has examined the patient and agrees with the treatment plan. (57 yr old male p/w chest pain, x1 negative torp and unremarkable xr, ASA given. To be admitted given risk factors to hospitalist team. Pt in NAD, admitted.) <Dallin Kaminski - Last Filed: 03/25/18 01:07> Disposition/Present on Arrival - Present on Arrival Any Indicators Present on Arrival: No History of DVT/PE: No History of Uncontrolled Diabetes: No Urinary Catheter: No History of Decub. Ulcer: No History Surgical Site Infection Following: None - Disposition Have Diagnosis and Disposition been Completed?: Yes Disposition Time: 00:47 <Paras Luis - Last Filed: 03/23/18 01:00> <Dallin Kaminski - Last Filed: 03/25/18 01:07> - Disposition Diagnosis: Chest pain, COPD exacerbation, ACS (acute coronary syndrome) Disposition: HOSPITALIZED Patient Problems: Current Active Problems Problem Status Onset ACS (acute coronary syndrome) Acute COPD exacerbation Acute Chest pain Acute Condition: FAIR
[2018-03-22 23:42] LABS: BASO # 0.03 K/mm3 (0.0-2.0); BASO % 0.6 % (0.0-3.0); EOS # 0.1 (0.0-0.7); EOS % 1.5 % (1.5-5.0); GRAN # 2.45 (1.4-6.5); GRAN % 45.8 % (50.0-68.0); HEMOGLOBIN 14.6 g/dL (14.0-18.0); LYMPH # 2.1 (1.2-3.4); LYMPH % 38.3 % (22.0-35.0); MEAN CELL VOLUME 93.5 fl (80.0-105.0); MEAN CORPUSCULAR HEMOGLOBIN 32.7 pg (25.0-35.0); MEAN CORPUSCULAR HGB CONC 34.9 g/dl (31.0-37.0); MEAN PLATELET VOLUME 9.8 fl (7.0-11.0); MONO # 0.7 (0.1-0.6); MONO % 13.8 % (1.0-6.0); RBC 4.47 10^6/uL (3.5-6.1); RED CELL DISTRIBUTION WIDTH 12.9 % (11.5-14.5); WHITE BLOOD COUNT 5.4 10^3/uL (4.5-11.0)
[2018-03-22 23:59] LABS: ALB/GLOB RATIO 1.3 (1.1-1.8); ALBUMIN 3.8 g/dL (3.0-4.8); ALT/SGPT 21 U/L (7-56); AST/SGOT 15 U/L (17-59); BLOOD UREA NITROGEN 21 mg/dL (7-21); CALCIUM 8.8 mg/dL (8.4-10.5); GFR NON-AFRICAN AMERICAN > 60
[2018-03-23 00:09] LABS: TROPONIN I < 0.01 ng/mL
[2018-03-23] MEDS ORDERED: Albuterol-Ipratrop 3 mg / 0.5 (3 ml) UD IH STA (00:51)
[2018-03-23] MEDS ORDERED: Albuterol-Ipratrop 3 mg / 0.5 (3 ml) UD IH PRN (01:48)
[2018-03-23] MEDS: Albuterol-Ipratrop 3 mg / 0.5 (3 ml) UD IH SCH ×4 (02:01→19:29)
--- NOTE | 2018-03-23 03:00 | CP.PCM.HP ---
History of Present Illness - History of Present Illness History of Present Illness: [facility], PGY-1 Medicine H&P for Dr. Thompson G: CC: Chest pain, tightness x2 days Pt is a 57yo M with Pmhx of COPD not on home O2, HTN, HLD, and Anxiety presents to ED for SOB, dry cough, body-aches, and non-radiating substernal chest tightness with associated fevers and chills that has been present for 2 days. Pt states that he tried ibuprofenx2 days without any relief. He states that the chest pain is a 5/10 that is diffusely present along his chest, no radiation to neck, jaw or shoulder, non-exertional and is related to the cough. Denies taking aspirin, inhalers or steroids recently. He was scheduled to undergo stress test at [facility] today which was cancelled d/t patients underlying weakness. He currently admits to fevers, chills, body aches, shakes, cough, chest pain that is worse with . He admits to sick contacts at home. PMH: COPD, Asthma, anxiety, HTN, HLD, lumbar disc herniation PSH: appendectomy Social: 2 packs of cigarettes for past 20 years, denied alcohol or illicit drug use Allergies: NKDA Medications: (per pt): dilaudid, oxycodone, anti-hypertensive Family history: mother had unknown heart condition, sister had CABG, father in 50s with unknown cancer PMD: Dr. Díaz Pharmacy: [facility] ([place] ) Present on Admission - Present on Admission Any Indicators Present on Admission: No Review of Systems - Review of Systems Review of Systems: 12 point ROS was reviewed and negative except for noted in HPI above. Past Patient History - Infectious Disease Hx of Infectious Diseases: None - Tetanus Immunizations Tetanus Immunization: Unknown - Past Social History Smoking Status: Heavy Smoker > 10 Cigarettes Daily - CARDIAC Hx Hypertension: Yes - PULMONARY Hx Asthma: Yes - NEUROLOGICAL Hx Neurological Disorder: No Hx Alzheimer's Disease: No HX Cerebrovascular Accident: No Hx Dementia: No Hx Migraine: No Hx Parkinson's Disease: No Hx Seizures: No Hx Transient Ischemic Attacks (TIA): No - HEENT Hx HEENT Problems: No Hx Blind: No Hx Cataracts: No Hx Deafness: No Hx Difficulty Chewing: No Hx Epistaxis: No Hx Glaucoma: No Hx Macular Degeneration: No - RENAL Hx Chronic Kidney Disease: No Hx Renal Failure: No - ENDOCRINE/METABOLIC Hx Diabetes Mellitus Type 2: No Hx Hyperthyroidism: No Hx Hypothyroidism: No - HEMATOLOGICAL/ONCOLOGICAL Hx Blood Disorders: No Hx Anemia: No Hx Cancer: No Hx Hepatitis A: No Hx Hepatitis B: No Hx Hepatitis C: No - INTEGUMENTARY Hx Dermatological Problems: No Hx Basil Cell: No Hx Eczema: No Hx Melanoma: No Hx Psoriasis: No Hx Squamous Cell: No - MUSCULOSKELETAL/RHEUMATOLOGICAL Hx Herniated Disk: Yes (bulging disk pinched nerve) - GASTROINTESTINAL Hx Gastrointestinal Disorders: No Hx Crohn's Disease: No Hx Diverticulitis: No Hx Gastroesophageal Reflux: No Hx Liver Failure: No - GENITOURINARY/GYNECOLOGICAL Hx Genitourinary Disorders: No Hx Hematuria: No Hx Incontinence: No Hx Prostate Problems: No Hx Sexually Transmitted Disorders: No Hx Urinary Tract Infection: No - PSYCHIATRIC Hx Anxiety: Yes Hx Depression: No Hx Emotional Abuse: No Hx Physical Abuse: No Hx Substance Use: No - SURGICAL HISTORY Hx Amputation: No Hx Appendectomy: Yes Hx Cardiac Catheterization: No Hx Cholecystectomy: No Hx Coronary Stent: No Hx Gastric Bypass Surgery: No Hx Hysterectomy: No Hx Joint Replacement: No Hx Kidney Transplant: No Hx Liver Transplant: No Hx Mastectomy: No Hx Open Heart Surgery: No Hx Orthopedic Surgery: No Hx Splenectomy: No Hx Valve Replacement: No - ANESTHESIA Hx Anesthesia: Yes Hx Anesthesia Reactions: No Hx Malignant Hyperthermia: No Meds Allergies/Adverse Reactions: Allergies Allergy/AdvReac Type Severity Reaction Status Date / Time No Known Allergies Allergy Verified 03/22/18 23:08 Physical Exam - Constitutional Appears: Well, Non-toxic, No Acute Distress - Head Exam Head Exam: ATRAUMATIC, NORMAL INSPECTION, NORMOCEPHALIC - Eye Exam Eye Exam: EOMI, Normal appearance, PERRL - Respiratory Exam Respiratory Exam: Clear to Auscultation Bilateral, NORMAL BREATHING PATTERN. absent: Accessory Muscle Use, Decreased Breath Sounds, Rales, Rhonchi, Wheezes, Respiratory Distress, Stridor - Cardiovascular Exam Cardiovascular Exam: RRR, +S1, +S2. absent: Gallop, Rubs, Systolic Murmur - GI/Abdominal Exam GI & Abdominal Exam: Normal Bowel Sounds, Soft. absent: Distended, Firm, Guarding, Tenderness - Extremities Exam Extremities exam: Positive for: normal capillary refill, normal inspection, pedal pulses present. Negative for: pedal edema, tenderness - Back Exam Back exam: NORMAL INSPECTION. absent: CVA tenderness (L), CVA tenderness (R) - Neurological Exam Neurological exam: Alert, Oriented x3 - Psychiatric Exam Psychiatric exam: Normal Affect, Normal Mood - Skin Skin Exam: Dry, Normal Color, Warm Results - Vital Signs Recent Vital Signs: Last Vital Signs Temp 98.6 F 03/23/18 00:49 Pulse 81 03/23/18 00:49 Resp 18 03/23/18 00:49 BP 144/80 03/23/18 00:49 Pulse Ox 94 L 03/23/18 00:49 - Labs Result Diagrams: 03/22/18 23:24 03/22/18 23:24 Labs: Laboratory Results - last 24 hr 03/22/18 03/22/18 03/22/18 23:24 23:24 23:24 WBC 5.4 D RBC 4.47 Hgb 14.6 Hct 41.8 L MCV 93.5 MCH 32.7 MCHC 34.9 RDW 12.9 Plt Count 190 MPV 9.8 Gran % 45.8 L Lymph % (Auto) 38.3 H [place] % (Auto) 13.8 H Eos % (Auto) 1.5 Baso % (Auto) 0.6 Gran # 2.45 Lymph # (Auto) 2.1 [place] # (Auto) 0.7 H Eos # (Auto) 0.1 Baso # (Auto) 0.03 Sodium 140 Potassium 3.9 Chloride 109 H Carbon Dioxide 27 Anion Gap 8 L BUN 21 Creatinine 1.2 Est GFR ( Amer) > 60 Est GFR (Non-Af Amer) > 60 Random Glucose 100 Calcium 8.8 Phosphorus 3.7 Magnesium 1.9 Total Bilirubin 0.4 AST 15 L D ALT 21 Alkaline Phosphatase 70 Troponin I < 0.01 Total Protein 6.7 Albumin 3.8 Globulin 2.9 Albumin/Globulin Ratio 1.3 Influenza Typ A,B (EIA) Negative for flu a/b Assessment & Plan - Assessment and Plan (Free Text) Assessment: Pt is a 57yo M with Pmhx of COPD not on home O2, HTN, HLD, and Anxiety presents to ED for SOB, dry cough, body-aches, and non-radiating substernal chest tightness with associated fevers and chills that has been present for 2 days. CXR done in ED is negative for active disease, read by me. Plan: 1. Chest pain r/o acs: - EKG showed sinus rhythm with occasional PVCs @ 72 bpm - Pt states that he is currently only having chest tightness - Initial trops negative - f/u serial trops - f/u lipid panel - f/u tsh - f/u HgbA1c - Cardio - trevino - Recent Echo is done 02/13/18 - showed no systolic dysfunction EF of 51 - Recent stress 02/13/18 - was normal but stopped early due to pts complaint of dizziness 2. SOB: - Pt has underlying hx of COPD - Pt has no wheezing and CXR is negative - Duobens q2 prn and q6 sandy - f/u abg 3. Hx of HTN: - currently not on meds, will continue to monitor 4. Hx of HLD: - Currently not on meds, cont to monitor - f/u lipid profile 5. PPx: - GI: Pepcid 20 BID - DVT: SCDs Case seen and discussed with Dr. Donna [facility], PGY-1
[2018-03-23 03:56] VITALS: BMI 22.3
[2018-03-23 07:20] LABS: GRAN # 3.37 (1.4-6.5); GRAN % 76.9 % (50.0-68.0); HEMOGLOBIN 15.1 g/dL (14.0-18.0); LYMPH % 21.7 % (22.0-35.0); MEAN CELL VOLUME 93.3 fl (80.0-105.0); MEAN CORPUSCULAR HEMOGLOBIN 31.7 pg (25.0-35.0); MEAN PLATELET VOLUME 9.8 fl (7.0-11.0); MONO # 0.1 (0.1-0.6); MONO % 1.4 % (1.0-6.0); RBC 4.76 10^6/uL (3.5-6.1); RED CELL DISTRIBUTION WIDTH 12.7 % (11.5-14.5); WHITE BLOOD COUNT 4.4 10^3/uL (4.5-11.0)
[2018-03-23 07:42] LABS: LDL CHOLESTEROL 150 mg/dL (0-129); TROPONIN I < 0.01 ng/mL
[2018-03-23 08:10] LABS: ALB/GLOB RATIO 1.3 (1.1-1.8); ALBUMIN 4.2 g/dL (3.0-4.8); ALT/SGPT 18 U/L (7-56); AST/SGOT 18 U/L (17-59); BLOOD UREA NITROGEN 25 mg/dL (7-21); CALCIUM 9.5 mg/dL (8.4-10.5); GFR NON-AFRICAN AMERICAN > 60; HDL CHOLESTEROL 46 mg/dL (29-60)
[2018-03-23] MEDS: cefTRIAXone 1 gm 1 GM/100 ML BAG IVPB SCH (10:04)
[2018-03-23] MEDS: Azithromycin 500MG/NS 250ml 500 MG/250 ML BAG IVPB SCH (11:29)
[2018-03-23] MEDS: MethylPREDNISolone 40 mg Vial IVP SCH ×2 (11:29→22:38)
[2018-03-23] MEDS ORDERED: Benzocaine/Menthol (Cepacol) Lozenge MT PRN (12:06)
--- NOTE | 2018-03-23 12:26 | CON ---
DATE: 03/23/2018 CONSULT SERVICE: Cardiology. REASON FOR CONSULTATION AND FOLLOWUP: Chest pain, cardiac evaluation, acute exacerbation of COPD, possible acute bronchitis. BRIEF CLINICAL HISTORY: This is a 57-year-old male with past medical history significant for COPD, on home oxygen, hypertension, hyperlipidemia, and anxiety disorder who scheduled stress test yesterday at [place] by Dr. Self, but patient was very short of breath and coughing and wheezing, so stress test was canceled and sent to the ER. The patient came in here with a complaint of chest pain and coughing and mild tenderness in the chest as well on the right side and goes to the left side. Denies any chest pain recently, but sometime off and on the patient get chest pain on walking. He is not sure because of the short of breath or because exacerbation of COPD. PAST MEDICAL HISTORY: Significant for asthma, COPD, anxiety disorder, hypertension, hyperlipidemia, history of pinched nerve and lumbar disc herniation. PAST SURGICAL HISTORY: Significant for appendectomy. SOCIAL HISTORY: One and half pack to two pack everyday for more than 30 years. Denies any history of alcohol abuse. Denies any history of substance abuse, but smokes pack and half to two packs everyday for more than 30 years. ALLERGIES: NO KNOWN DRUG ALLERGIES. CURRENT MEDICATIONS: The patient is taking at home high blood pressure medication, name unknown as well as Dilaudid as well as oxycodone, and Xanax. Recent cardiac workup, the patient had a echocardiography done on 02/07/2016 that shows LV function borderline, left atrium borderline, mild tricuspid regurgitation, average systolic pressure 41, calculated ejection fraction 50% dated 02/07/2016. The patient has also bilateral carotid Duplex on 02/07/2016 that shows bilateral 29% ICA stenosis dated 02/07/2016. The patient has also a stress test on 06/09/2013 and that shows normal myocardial perfusion study, ejection fracture 71%. REVIEW OF SYSTEMS: As per HPI. PHYSICAL EXAMINATION: VITAL SIGNS: Height of the patient is 5 feet 11 inches, weight of the patient 60 pounds, body mass index 25 kg/m2. Temperature afebrile, heart rate 57, blood pressure 135/77. HEENT: PERRLA. Extraocular muscles intact. NECK: Supple. No carotid bruit. No thyromegaly. CHEST: Clear to auscultation. HEART: S1, S2 regular. ABDOMEN: Soft. EXTREMITIES: Clubbing and cyanosis negative. LABORATORY DATA: Blood workup as follows, WBC 4.5, hemoglobin 15, hematocrit 44.4, platelet count 195. Chemistry shows sodium 141, potassium 4.7, chloride 109, carbon dioxide 29, anion gap of 9, BUN 25, creatinine 1.1. Troponin 0.01 x2 negative. EKG showed normal sinus with APCs, heart rate of 72. No acute ST-T changes noted. IMPRESSION AND PLAN: A 57-year-old active tobacco abuse male with home oxygen, history of hypertension, complaining of chest pain off and on scheduled for stress test, but could not because of acute exacerbation of chronic obstructive pulmonary disease. Had a stress test in 2013, was normal. Given the multiple risk factors of coronary artery disease, suggest echo and stress test. First, we will treat the patient's acute exacerbation of chronic obstructive pulmonary disease, discussed with the team taking care to start IV antibiotic for exacerbation of chronic obstructive pulmonary disease as well as for acute exacerbation of chronic obstructive pulmonary disease. When the symptoms subsides, possibly schedule stress test on Sunday as outpatient, we will follow with you. We will get lipid profile, TSH, hemoglobin A1c. We will get echo today to assess LV function and a stress test on Sunday. Further recommendation to hospital course, I will follow with you. Thank you Dr. Barahona for providing us the opportunity in taking care of the patient, James Baez. Lizandro Kendrick MD
--- NOTE | 2018-03-23 12:40 | RAD ---
Date of service: 03/22/2018 HISTORY: cp, sob COMPARISON: Chest radiograph dated 04/27/2017. TECHNIQUE: Chest PA and lateral FINDINGS: LUNGS: No active pulmonary disease. PLEURA: No significant pleural effusion identified. No pneumothorax apparent. CARDIOVASCULAR: Atherosclerotic aortic calcifications. Cardiomediastinal silhouette within normal limits. OSSEOUS STRUCTURES: Unchanged. VISUALIZED UPPER ABDOMEN: Normal. OTHER FINDINGS: None. IMPRESSION: No active disease.
[2018-03-23] MEDS: oxyCODONE 10 mg Immediate Release Tab PO PRN (17:27)
--- NOTE | 2018-03-23 18:10 | CARD ---
APPROVED REPORT Date of service: 03/22/2018 EKG Measurement Heart [id number] <Conclusion> Sinus rhythm with premature atrial complexes Otherwise normal ECG
[2018-03-23] MEDS: guaiFENesin 100 mg/5 ml Syrup UD PO PRN (22:47)
[2018-03-24 00:13] VITALS: O2SAT 99
[2018-03-24] MEDS: Albuterol-Ipratrop 3 mg / 0.5 (3 ml) UD IH SCH ×4 (01:12→19:37)
[2018-03-24 07:11] LABS: BASO # 0.01 K/mm3 (0.0-2.0); BASO % 0.1 % (0.0-3.0); GRAN # 15.95 (1.4-6.5); GRAN % 89.2 % (50.0-68.0); HEMOGLOBIN 13.8 g/dL (14.0-18.0); LYMPH # 1.4 (1.2-3.4); MEAN CELL VOLUME 93.3 fl (80.0-105.0); MEAN CORPUSCULAR HEMOGLOBIN 31.8 pg (25.0-35.0); MEAN CORPUSCULAR HGB CONC 34.1 g/dl (31.0-37.0); MEAN PLATELET VOLUME 9.9 fl (7.0-11.0); MONO # 0.5 (0.1-0.6); MONO % 2.7 % (1.0-6.0); RBC 4.34 10^6/uL (3.5-6.1); RED CELL DISTRIBUTION WIDTH 12.8 % (11.5-14.5); WHITE BLOOD COUNT 17.9 10^3/uL (4.5-11.0)
[2018-03-24 07:32] LABS: ALB/GLOB RATIO 1.3 (1.1-1.8); ALBUMIN 3.9 g/dL (3.0-4.8); ALT/SGPT 18 U/L (7-56); AST/SGOT 14 U/L (17-59); BLOOD UREA NITROGEN 21 mg/dL (7-21); CALCIUM 9.3 mg/dL (8.4-10.5); GFR NON-AFRICAN AMERICAN > 60
--- NOTE | 2018-03-24 08:03 | CP.PCM.PN ---
Subjective - Date & Time of Evaluation Date of Evaluation: 03/24/18 Time of Evaluation: 06:25 - Subjective Subjective: Awake, alert, lying in bed, no distress Reason for consultation and follow up: Cardiac evaluation of chest pain,acute exacerbation of COPD, possible bronchitis, history of hypertension,hyperlipidemia,anxiety disorder Seen and examined by me and Dr. Kendrick Objective - Vital Signs/Intake and Output Vital Signs (last 24 hours): Temp Pulse Resp BP Pulse Ox 97.9 F 64 20 120/85 99 03/24/18 06:00 03/24/18 06:00 03/24/18 06:00 03/24/18 06:00 03/24/18 06:00 Intake and Output: 03/24/18 03/24/18 06:59 18:59 Intake Total 240 Output Total 0 Balance 240 - Medications Medications: Current Medications Acetaminophen (Tylenol 325mg Tab) 650 mg PO Q6H PRN PRN Reason: Headache Albuterol/Ipratropium (Duoneb 3 Mg/0.5 Mg (3 Ml) Ud) 3 ml IH Q2PVBTH [facility] Last Admin: 03/24/18 07:46 Dose: 3 ml Albuterol/Ipratropium (Duoneb 3 Mg/0.5 Mg (3 Ml) Ud) 3 ml IH Q2H PRN PRN Reason: Shortness of Breath Alprazolam (Xanax) 0.5 mg PO HS PRN; Protocol PRN Reason: Anxiety Last Admin: 03/23/18 22:47 Dose: 0.5 mg Aspirin (Ecotrin) 81 mg PO DAILY [facility] Last Admin: 03/23/18 10:04 Dose: 81 mg Atorvastatin Calcium (Lipitor) 40 mg PO DIN [facility] Last Admin: 03/23/18 17:27 Dose: 40 mg Benzocaine/Menthol (Cepacol Sore Throat) 1 marion MT Q2H PRN PRN Reason: Sore Throat Last Admin: 03/23/18 14:11 Dose: 1 marion Famotidine (Pepcid) 20 mg PO BID [facility] Last Admin: 03/23/18 17:27 Dose: 20 mg Guaifenesin (Robitussin) 100 mg PO Q4H PRN PRN Reason: Cough Last Admin: 03/23/18 22:47 Dose: 100 mg Heparin Sodium (Porcine) (Heparin) 5,000 units SC Q8 [facility]; Protocol Last Admin: 03/24/18 06:39 Dose: Not Given Ceftriaxone Sodium (Rocephin 1 Gram Ivpb) 1 gm in 100 mls @ 100 mls/hr IVPB DAILY [facility]; Protocol Last Admin: 03/23/18 10:04 Dose: 100 mls/hr Azithromycin (Zithromax 500mg In Ns) 500 mg in 250 mls @ 167 mls/hr IVPB DAILY [facility]; Protocol Last Admin: 03/23/18 11:29 Dose: 167 mls/hr Methylprednisolone (Solu-Medrol) 40 mg IVP Q12 [facility] Last Admin: 03/23/18 22:38 Dose: 40 mg Nicotine (Nicoderm Cq) 1 patch TD DAILY [facility] Last Admin: 03/23/18 14:03 Dose: 1 patch Oxycodone HCl (Oxycodone Immediate Release Tab) 10 mg PO Q8H PRN PRN Reason: Pain, severe (8-10) Last Admin: 03/23/18 17:27 Dose: 10 mg - Labs Labs: 03/24/18 06:45 03/24/18 06:45 - Constitutional Appears: Non-toxic, No Acute Distress - Head Exam Head Exam: NORMAL INSPECTION, NORMOCEPHALIC - Eye Exam Eye Exam: Normal appearance Pupil Exam: NORMAL ACCOMODATION - ENT Exam ENT Exam: Mucous Membranes Moist, Normal Exam - Respiratory Exam Respiratory Exam: Decreased Breath Sounds, Clear to Ausculation Bilateral, NORMAL BREATHING PATTERN - Cardiovascular Exam Cardiovascular Exam: REGULAR RHYTHM, +S1, +S2 Additional comments: telemetry NSR with APC's and PVC's - GI/Abdominal Exam GI & Abdominal Exam: Soft, Normal Bowel Sounds - Extremities Exam Extremities Exam: Full ROM, Normal Capillary Refill - Neurological Exam Neurological Exam: Alert, Awake, Oriented x3 - Psychiatric Exam Psychiatric exam: Normal Affect, Normal Mood - Skin Skin Exam: Dry, Normal Color, Warm Assessment and Plan - Assessment and Plan (Free Text) Assessment: A 57 year old male who came in to the ER due to non-radiating substernal chest tightness.History of hypertension,hyperlipidemia,asthma,anxiety disorder,lumbar disc herniation, appendectomy. He was supposed to have stress test at [facility] but cancelled due to shortness of breath and coughing and mild tenderness on chest. Currently smokes 1-2 PPD for more than 30 years.Troponin normal. EKG no ischemia. Acute exacerbation of COPD, possible bronchitis. rule out acute coronary syndrome. Plan: Denies shortness of breath, feels better Stress test on Sunday NPO post midnight except meds Blood pressure controlled Heart rate controlled Continue nebulizer treatment On ASA 81 mg daily,Lipitor 40 mg daily,Heparin SQ 5000units TID, Solumedrol 40 mg BID,Nicotine patch daily Continue current treatment Continue current medications Lifestyle modification Smoking cessation Will follow up Plan and treatment discussed with Dr. Kendrick
[2018-03-24] MEDS: MethylPREDNISolone 40 mg Vial IVP SCH ×2 (09:58→21:35)
[2018-03-24] MEDS: cefTRIAXone 1 gm 1 GM/100 ML BAG IVPB SCH (09:58)
[2018-03-24] MEDS: guaiFENesin 100 mg/5 ml Syrup UD PO PRN ×2 (10:03→21:41)
--- NOTE | 2018-03-24 11:43 | PN ---
DATE: 03/24/2018 REASON FOR CONSULTATION AND FOLLOWUP: Cardiac evaluation, chest pain, acute exacerbation of COPD, possible bronchitis, history ofCOPD. / asthma, hyperlipidemia, anxiety disorder. SUBJECTIVE: The patient feels stable. No evidence of acute MD. The patient has been scheduled for a stress test in [place], but admitted here because of multiple risk factors of coronary artery disease, we will schedule stress test tomorrow morning. Keep n.p.o. after 12:00 midnight for a stress test in the morning. I discussed with the patient. WBC is elevated secondary to steroids. The patient feels a lot better after steroid used. This note is in addition to the dictated by nurse practitioner, Ruth Hays. Lizandro Kendrick MD [facility]
[2018-03-24] MEDS: Azithromycin 500MG/NS 250ml 500 MG/250 ML BAG IVPB SCH (11:58)
--- NOTE | 2018-03-24 15:27 | CP.PCM.PN ---
<Johnson Benavides - Last Filed: 03/24/18 15:22> Subjective - Date & Time of Evaluation Date of Evaluation: 03/24/18 Time of Evaluation: 08:30 - Subjective Subjective: Medicine Progress Note for Hospitalist Service, Dr. Jun Benavides, DO PGY-1 Pt seen and examined at bedside. Denies any acute complaints. States his chest tightness is improving. No acute events reported overnight by staff. Denies fever, chills, shortness of breath, n/v/d/c, abd pain, urinary complaints, or other symptoms. States that he has been coughing up sputum with improvement in symptoms. Objective - Vital Signs/Intake and Output Vital Signs (last 24 hours): Temp Pulse Resp BP Pulse Ox 98.1 F 81 19 153/79 H 99 03/24/18 12:00 03/24/18 12:00 03/24/18 12:00 03/24/18 12:00 03/24/18 06:00 Intake and Output: 03/24/18 03/24/18 06:59 18:59 Intake Total 240 Output Total 0 Balance 240 - Medications Medications: Current Medications Acetaminophen (Tylenol 325mg Tab) 650 mg PO Q6H PRN PRN Reason: Headache Albuterol/Ipratropium (Duoneb 3 Mg/0.5 Mg (3 Ml) Ud) 3 ml [id number] Last Admin: 03/24/18 13:03 Dose: 3 ml Albuterol/Ipratropium (Duoneb 3 Mg/0.5 Mg (3 Ml) Ud) 3 ml IH Q2H PRN PRN Reason: Shortness of Breath Alprazolam (Xanax) 0.5 mg PO HS PRN; Protocol PRN Reason: Anxiety Last Admin: 03/23/18 22:47 Dose: 0.5 mg Aspirin (Ecotrin) 81 mg PO DAILY [facility] Last Admin: 03/24/18 09:58 Dose: 81 mg Atorvastatin Calcium (Lipitor) 40 mg PO DIN [facility] Last Admin: 03/23/18 17:27 Dose: 40 mg Benzocaine/Menthol (Cepacol Sore Throat) 1 marion MT Q2H PRN PRN Reason: Sore Throat Last Admin: 03/23/18 14:11 Dose: 1 marion Famotidine (Pepcid) 20 mg PO BID [facility] Last Admin: 03/24/18 09:58 Dose: 20 mg Guaifenesin (Robitussin) 100 mg PO Q4H PRN PRN Reason: Cough Last Admin: 03/24/18 10:03 Dose: 100 mg Heparin Sodium (Porcine) (Heparin) 5,000 units SC Q8 [facility]; Protocol Last Admin: 03/24/18 14:38 Dose: Not Given Ceftriaxone Sodium (Rocephin 1 Gram Ivpb) 1 gm in 100 mls @ 100 mls/hr IVPB DAILY [facility]; Protocol Last Admin: 03/24/18 09:58 Dose: 100 mls/hr Azithromycin (Zithromax 500mg In Ns) 500 mg in 250 mls @ 167 mls/hr IVPB DAILY [facility]; Protocol Last Admin: 03/24/18 11:58 Dose: 167 mls/hr Methylprednisolone (Solu-Medrol) 40 mg IVP Q12 [facility] Last Admin: 03/24/18 09:58 Dose: 40 mg Nicotine (Nicoderm Cq) 1 patch TD DAILY [facility] Last Admin: 03/24/18 10:30 Dose: 1 patch Oxycodone HCl (Oxycodone Immediate Release Tab) 10 mg PO Q8H PRN PRN Reason: Pain, severe (8-10) Last Admin: 03/23/18 17:27 Dose: 10 mg - Labs Labs: 03/24/18 06:45 03/24/18 06:45 - Constitutional Appears: Non-toxic, No Acute Distress - Head Exam Head Exam: ATRAUMATIC, NORMOCEPHALIC - Eye Exam Eye Exam: EOMI, Normal appearance, PERRL - ENT Exam ENT Exam: Mucous Membranes Moist - Neck Exam Neck Exam: Full ROM, Normal Inspection. absent: Tenderness - Respiratory Exam Respiratory Exam: Wheezes, NORMAL BREATHING PATTERN. absent: Rales, Rhonchi, Respiratory Distress - Cardiovascular Exam Cardiovascular Exam: REGULAR RHYTHM, +S1, +S2. absent: Gallop, Rubs, Murmur - GI/Abdominal Exam GI & Abdominal Exam: Soft, Normal Bowel Sounds. absent: Distended, Guarding, Tenderness, Organomegaly - Extremities Exam Extremities Exam: Full ROM, Normal Capillary Refill, Normal Inspection. absent: Calf Tenderness, Pedal Edema - Neurological Exam Neurological Exam: Alert, Awake, CN II-XII Intact, Normal Gait, Oriented x3 - Psychiatric Exam Psychiatric exam: Normal Affect, Normal Mood - Skin Skin Exam: Dry, Intact, Normal Color, Warm Assessment and Plan - Assessment and Plan (Free Text) Assessment: 57 y o M with Pmhx of COPD not on home O2, HTN, HLD, and Anxiety presents to ED for SOB, dry cough, body-aches, and non-radiating substernal chest tightness with associated fevers and chills that has been present for 2 days. Admitted for chest pain r/o ACS and COPD exacerbation/acute bronchitis. Plan: Chest pain r/o ACS: - EKG showed sinus rhythm with occasional PVCs @ 72 bpm - Pt states chest tightness is improving - Troponins neg x3 - Lipid panel: Total chol 214, LDL 150, HDL 46,TG 49 - TSH 0.21, will f/u T3 and T4 - HgbA1c 5.3 - Cardio, Dr. Mauro consulted, recs appreciated - Recent Echo is done 02/13/18 - showed no systolic dysfunction EF of 51 - Recent stress test 02/13/18 - was normal but stopped early due to pt's complaint of dizziness - NPO after midnight for stress test tomorrow - ASA daily SOB likely 2/2 to COPD exacerbation/acute bronchitis: - Pt has underlying hx of COPD - Pt has no wheezing and CXR is negative - Duobens q2 prn and q6 sandy - Solumedrol 40 mg IVP q 12 h - Influenza neg - WBC trending up today, likely 2/2 steroid administration Hx of HTN: - Currently not on meds, will continue to monitor Hx of HLD: - Lipitor 40 mg PO din - Lipid profile as noted above Hx Lumbar Disc Herniation: -Pt follow w/ pain management outpt -Per [employer] and Pharmacy verification, pt is on PO dilaudid and oxy for pain control, prescribed by PMD, scripts last picked up 03/21 prior to admission -Oxy 10 mg PO q8h prn Hx Anxiety: -Xanax 0.5 mg PO hs, verified with outpatient pharmacy and [employer] Hx Tobacco Abuse: -Nicotine patch -Encourage smoking cessation PPX: - GI: Pepcid 20 BID - DVT: SCDs Pt seen, examined with, and plan discussed with Dr. Barahona, attending physician. Johnson Benavides DO PGY-1, Imaging Tech Pager# [phone] <CalinMaura batista - Last Filed: 03/24/18 15:49> Objective - Vital Signs/Intake and Output Vital Signs (last 24 hours): Temp Pulse Resp BP Pulse Ox 98.1 F 81 19 153/79 H 99 03/24/18 12:00 03/24/18 12:00 03/24/18 12:00 03/24/18 12:00 03/24/18 06:00 Intake and Output: 03/24/18 03/24/18 06:59 18:59 Intake Total 240 Output Total 0 Balance 240 - Medications Medications: Current Medications Acetaminophen (Tylenol 325mg Tab) 650 mg PO Q6H PRN PRN Reason: Headache Albuterol/Ipratropium (Duoneb 3 Mg/0.5 Mg (3 Ml) Ud) 3 ml [id number] Last Admin: 03/24/18 13:03 Dose: 3 ml Albuterol/Ipratropium (Duoneb 3 Mg/0.5 Mg (3 Ml) Ud) 3 ml IH Q2H PRN PRN Reason: Shortness of Breath Alprazolam (Xanax) 0.5 mg PO HS PRN; Protocol PRN Reason: Anxiety Last Admin: 03/23/18 22:47 Dose: 0.5 mg Aspirin (Ecotrin) 81 mg PO DAILY [facility] Last Admin: 03/24/18 09:58 Dose: 81 mg Atorvastatin Calcium (Lipitor) 40 mg PO DIN [facility] Last Admin: 03/23/18 17:27 Dose: 40 mg Benzocaine/Menthol (Cepacol Sore Throat) 1 marion MT Q2H PRN PRN Reason: Sore Throat Last Admin: 03/23/18 14:11 Dose: 1 marion Famotidine (Pepcid) 20 mg PO BID [facility] Last Admin: 03/24/18 09:58 Dose: 20 mg Guaifenesin (Robitussin) 100 mg PO Q4H PRN PRN Reason: Cough Last Admin: 03/24/18 10:03 Dose: 100 mg Heparin Sodium (Porcine) (Heparin) 5,000 units SC Q8 [facility]; Protocol Last Admin: 03/24/18 14:38 Dose: Not Given Ceftriaxone Sodium (Rocephin 1 Gram Ivpb) 1 gm in 100 mls @ 100 mls/hr IVPB DAILY [facility]; Protocol Last Admin: 03/24/18 09:58 Dose: 100 mls/hr Azithromycin (Zithromax 500mg In Ns) 500 mg in 250 mls @ 167 mls/hr IVPB DAILY [facility]; Protocol Last Admin: 03/24/18 11:58 Dose: 167 mls/hr Methylprednisolone (Solu-Medrol) 40 mg IVP Q12 [facility] Last Admin: 03/24/18 09:58 Dose: 40 mg Nicotine (Nicoderm Cq) 1 patch TD DAILY [facility] Last Admin: 03/24/18 10:30 Dose: 1 patch Oxycodone HCl (Oxycodone Immediate Release Tab) 10 mg PO Q8H PRN PRN Reason: Pain, severe (8-10) Last Admin: 03/23/18 17:27 Dose: 10 mg - Labs Labs: 03/24/18 06:45 03/24/18 06:45 Attending/Attestation - Attestation I have personally seen and examined this patient.: Yes I have fully participated in the care of the patient.: Yes I have reviewed all pertinent clinical information, including history, physical exam and plan: Yes Notes (Text): 03/24/18 15:44 attending note; Patient seen and examined with resident. Patient is alert and awake. Shortness of breath is improving. Cough and wheezing is improving. denies any fevers, chills. Ambulating in the hallway. Patient is a 57-year-old male with Pmhx of COPD ,, HTN, HLD, and Anxiety is admitted for shortness of breath and chest pain. 1. Acute COPD exacerbation with bronchitis; Continue oxygen, DuoNeb, IV Solu-Medrol. Continue IV Rocephin and Zithromax. Respiratory status is improving slowly. Cough and shortness of breath is improving. 2. Leukocytosis; secondary to IV Solu-Medrol. Patient is afebrile and nontoxic. Chest x-ray is negative. 3. Chest pain; mostly pleuritic chest pain. Cardiac enzymes Negative. Nothing by mouth past midnight for stress test tomorrow. Cardiology evaluation appreciated. 4. Active smoking; complete smoking cessation is strongly advised. started on NicoDerm patch. 5. Chronic opiate dependency; [employer] reviewed. Patient is getting Dilaudid, oxycodone and Ambien from Dr. Díaz. Advised to taper and discontinue opiates. upon discharge patient will follow up with PMD Dr. Díaz.
[2018-03-24 16:51] LABS: BARBITURATES, UR NEGATIVE (NEGATIVE); BENZODIAZEPINES, UR POSITIVE (NEGATIVE); OPIATES, UR NEGATIVE (NEGATIVE); PHENCYCLIDINE, UR NEGATIVE (NEGATIVE)
[2018-03-24] MEDS: oxyCODONE 10 mg Immediate Release Tab PO PRN (21:41)
[2018-03-24 23:38] VITALS: RESP 20
[2018-03-25] MEDS: Albuterol-Ipratrop 3 mg / 0.5 (3 ml) UD IH SCH ×3 (01:29→13:11)
[2018-03-25 05:36] VITALS: BP 127/76; PULSE 87; TEMP 98.4
[2018-03-25 07:11] LABS: BASO # 0.01 K/mm3 (0.0-2.0); BASO % 0.1 % (0.0-3.0); GRAN # 12.93 (1.4-6.5); GRAN % 85.6 % (50.0-68.0); HEMOGLOBIN 13.7 g/dL (14.0-18.0); LYMPH # 1.7 (1.2-3.4); LYMPH % 10.9 % (22.0-35.0); MEAN CELL VOLUME 93.3 fl (80.0-105.0); MEAN CORPUSCULAR HEMOGLOBIN 31.4 pg (25.0-35.0); MEAN CORPUSCULAR HGB CONC 33.7 g/dl (31.0-37.0); MEAN PLATELET VOLUME 9.9 fl (7.0-11.0); MONO # 0.5 (0.1-0.6); MONO % 3.4 % (1.0-6.0); RBC 4.36 10^6/uL (3.5-6.1); WHITE BLOOD COUNT 15.1 10^3/uL (4.5-11.0)
[2018-03-25 07:19] LABS: INR 0.96; PARTIAL THROMBOPLASTIN TIME 27.3 Seconds (25.1-36.5)
[2018-03-25 07:32] LABS: ALB/GLOB RATIO 1.3 (1.1-1.8); ALBUMIN 3.6 g/dL (3.0-4.8); ALT/SGPT 16 U/L (7-56); AST/SGOT 14 U/L (17-59); BLOOD UREA NITROGEN 19 mg/dL (7-21); CALCIUM 8.8 mg/dL (8.4-10.5); GFR NON-AFRICAN AMERICAN > 60
[2018-03-25 07:48] LABS: T4 6.1 ug/dL (5.5-11.0)
[2018-03-25 08:01] LABS: T3 0.82 ng/mL (0.97-1.69)
[2018-03-25] MEDS ORDERED: MethylPREDNISolone 40 mg Vial IVP SCH (10:00)
[2018-03-25] MEDS ORDERED: Cefpodoxime (Vantin) 200 mg Tab PO SCH (10:00)
[2018-03-25] MEDS: Azithromycin 500MG/NS 250ml 500 MG/250 ML BAG IVPB SCH (10:01)
[2018-03-25] MEDS: guaiFENesin 100 mg/5 ml Syrup UD PO PRN (12:33)
--- NOTE | 2018-03-25 13:49 | CP.PCM.DIS ---
<KennedyJohnson - Last Filed: 03/25/18 14:10> Provider - Provider Date of Admission: 03/23/18 01:00 Attending physician: Maura Barahona MD Consults: 03/23/18 01:48 Cardiology Consult Routine Comment: Consulting Provider: Lizandro Mauro Consulting Physician: Lizandro Mauro Reason for Consult: chest pain Time Spent in preparation of Discharge (in minutes): 45 Diagnosis - Discharge Diagnosis (1) Lumbar disc herniation Status: Chronic (2) Acute bronchitis Status: Acute (3) History of anxiety Status: Chronic (4) COPD (chronic obstructive pulmonary disease) Status: Chronic (5) Chest pain Status: Acute (6) HLD (hyperlipidemia) Status: Chronic (7) Medical non-compliance Status: Chronic (8) Tobacco abuse Status: Chronic (9) History of cocaine abuse Status: Chronic Hospital Course - Lab Results Lab Results: Micro Results 03/23/18 10:30 Blood Blood Culture - Preliminary NO GROWTH AFTER 48 HOURS 03/23/18 11:00 Blood Blood Culture - Preliminary NO GROWTH AFTER 48 HOURS Most Recent Lab Values WBC 15.1 10^3/uL (4.5-11.0) H 03/25/18 06:30 RBC 4.36 10^6/uL (3.5-6.1) 03/25/18 06:30 Hgb 13.7 g/dL (14.0-18.0) L 03/25/18 06:30 Hct 40.7 % (42.0-52.0) L 03/25/18 06:30 MCV 93.3 fl (80.0-105.0) 03/25/18 06:30 MCH 31.4 pg (25.0-35.0) 03/25/18 06:30 MCHC 33.7 g/dl (31.0-37.0) 03/25/18 06:30 RDW 13.0 % (11.5-14.5) 03/25/18 06:30 Plt Count 207 10^3/uL (120.0-450.0) 03/25/18 06:30 MPV 9.9 fl (7.0-11.0) 03/25/18 06:30 Gran % 85.6 % (50.0-68.0) H 03/25/18 06:30 Lymph % (Auto) 10.9 % (22.0-35.0) L 03/25/18 06:30 [place] % (Auto) 3.4 % (1.0-6.0) 03/25/18 06:30 Eos % (Auto) 0.0 % (1.5-5.0) L 03/25/18 06:30 Baso % (Auto) 0.1 % (0.0-3.0) 03/25/18 06:30 Gran # 12.93 (1.4-6.5) H 03/25/18 06:30 Lymph # (Auto) 1.7 (1.2-3.4) 03/25/18 06:30 [place] # (Auto) 0.5 (0.1-0.6) 03/25/18 06:30 Eos # (Auto) 0.0 (0.0-0.7) 03/25/18 06:30 Baso # (Auto) 0.01 K/mm3 (0.0-2.0) 03/25/18 06:30 PT 11.0 SECONDS (9.4-12.5) 03/25/18 06:30 INR 0.96 03/25/18 06:30 APTT 27.3 Seconds (25.1-36.5) 03/25/18 06:30 Sodium 138 mmol/L (132-148) 03/25/18 06:30 Potassium 4.5 mmol/L (3.6-5.0) 03/25/18 06:30 Chloride 104 mmol/L (98-107) 03/25/18 06:30 Carbon Dioxide 28 mmol/L (21-33) 03/25/18 06:30 Anion Gap 11 (10-20) 03/25/18 06:30 BUN 19 mg/dL (7-21) 03/25/18 06:30 Creatinine 0.8 mg/dl (0.8-1.5) 03/25/18 06:30 Est GFR ( Amer) > 60 03/25/18 06:30 Est GFR (Non-Af Amer) > 60 03/25/18 06:30 Random Glucose 128 mg/dL (70-110) H 03/25/18 06:30 Hemoglobin A1c 5.3 % (4.2-6.5) 03/23/18 06:30 Calcium 8.8 mg/dL (8.4-10.5) 03/25/18 06:30 Phosphorus 3.7 mg/dL (2.5-4.5) 03/25/18 06:30 Magnesium 2.0 mg/dL (1.7-2.2) 03/25/18 06:30 Total Bilirubin 0.2 mg/dL (0.2-1.3) 03/25/18 06:30 AST 14 U/L (17-59) L 03/25/18 06:30 ALT 16 U/L (7-56) 03/25/18 06:30 Alkaline Phosphatase 66 U/L (38-126) 03/25/18 06:30 Troponin I < 0.01 ng/mL 03/23/18 11:00 Total Protein 6.3 g/dL (5.8-8.3) 03/25/18 06:30 Albumin 3.6 g/dL (3.0-4.8) 03/25/18 06:30 Globulin 2.7 gm/dL 03/25/18 06:30 Albumin/Globulin Ratio 1.3 (1.1-1.8) 03/25/18 06:30 Triglycerides 49 mg/dL (35-160) 03/23/18 06:30 Cholesterol 214 mg/dL (130-200) H 03/23/18 06:30 LDL Cholesterol Direct 150 mg/dL (0-129) H 03/23/18 06:30 HDL Cholesterol 46 mg/dL (29-60) 03/23/18 06:30 Thyroxine (T4) 6.1 ug/dL (5.5-11.0) 03/25/18 06:30 Total T3 0.82 ng/mL (0.97-1.69) L 03/25/18 06:30 TSH 3rd Generation 0.21 mIU/mL (0.46-4.68) L 03/23/18 06:30 Urine Opiates Screen Negative (NEGATIVE) 03/24/18 10:15 Urine Methadone Screen Negative (NEGATIVE) 03/24/18 10:15 Ur Barbiturates Screen Negative (NEGATIVE) 03/24/18 10:15 Ur Phencyclidine Scrn Negative (NEGATIVE) 03/24/18 10:15 Ur Amphetamines Screen Negative (NEGATIVE) 03/24/18 10:15 U Benzodiazepines Scrn Positive (NEGATIVE) H 03/24/18 10:15 U Oth Cocaine Metabols Positive (NEGATIVE) H 03/24/18 10:15 U Cannabinoids Screen Negative (NEGATIVE) 03/24/18 10:15 Influenza Typ A,B (EIA) Negative for flu a/b (NEGATIVE) 03/22/18 23:24 - Hospital Course Hospital Course: HPI at time of admission: "57 y o M with Pmhx of COPD not on home O2, HTN, HLD, and Anxiety presents to ED for SOB, dry cough, body-aches, and non-radiating substernal chest tightness with associated fevers and chills that has been present for 2 days. Pt states that he tried ibuprofenx2 days without any relief. He states that the chest pain is a 5/10 that is diffusely present along his chest, no radiation to neck, jaw or shoulder, non-exertional and is related to the cough. Denies taking aspirin, inhalers or steroids recently. He was scheduled to undergo stress test at [facility] today which was cancelled d/t patients underlying weakness. He currently admits to fevers, chills, body aches, shakes, cough, chest pain that is worse with . He admits to sick contacts at home." Hospital Course: Pertinent imaging: CXR 2 Views 03/22: no active disease EKG 03/22: sinus rhythm at 72 bpm with premature atrial complexes Pt was admitted for chest pain r/o ACS and COPD exacerbation/acute bronchitis. Pt's chest tightness symptoms improved during admission. Troponins were neg x3. Lipid panel: Total chol 214, LDL 150, HDL 46,TG 49 Hgb A1c 5.3 Cardio was consulted (Dr. Kendrick) who recommended pt undergo stress test while inpatient. However pt refused stress test on 03/25/18 due to being claustrophobic with the mask during procedure. Pt was scheduled for Stress Test with his primary Welfare Eligibility Interviewer Dr. Self on Sunday03/29/17 at [facility], and was instructed to follow-up for appointment after hospital discharge. Pt was placed on ASA and Lipitor while inpatient. Pt was treated for COPD exacerbation on duonebs, steroids and Zithromax, and did not demonstrate wheezing on clinical presentation. Clinical symptoms improved during course of admission. Pt was also managed for hx lumbar disc herniation and anxiety with home med regimen, verified with AUTO REPAIR TECHNICIAN and pt's outpatient pharmacy. Urine toxicology tested positive for benzos and cocaine. Pt was counseled on importance of smoking cessation and how it could improve his COPD symptoms. Pt was also counseled on importance of cocaine cessation. Pt was discharged to home in stable condition on 03/25/18. Instructed to f/u with PMD Dr. Díaz within 3-5 days of hospital d/c. Was also instructed to f/u with primary flyer builder Dr. Self as noted above. Pt was given scripts of ASA, Lipitor, Azithromcin, Medrol dose pack, nebulizer, ventolin inhaler, and Nicotine patch prior to discharge. Instructed to f/u with PMD Dr. Díaz for refills of home medications. Discharge Exam - Head Exam Head Exam: ATRAUMATIC, NORMOCEPHALIC - Eye Exam Eye Exam: EOMI, Normal appearance, PERRL - ENT Exam ENT Exam: Mucous Membranes Moist - Respiratory Exam Respiratory Exam: Clear to PA & Lateral, NORMAL BREATHING PATTERN, UNREMARKABLE. absent: Rales, Rhonchi, Wheezes - Cardiovascular Exam Cardiovascular Exam: REGULAR RHYTHM, +S1, +S2. absent: Gallop, Rubs, Systolic Murmur - GI/Abdominal Exam GI & Abdominal Exam: Normal Bowel Sounds, Soft, Unremarkable. absent: Distended, Organomegaly, Tenderness - Extremities Exam Extremities exam: full ROM, normal capillary refill, normal inspection, pedal pulses present - Neurological Exam Neurological exam: Alert, CN II-XII Intact, Normal Gait, Oriented x3, Reflexes Normal - Psychiatric Exam Psychiatric exam: Anxious - Skin Skin Exam: Dry, Intact, Normal Color, Warm Discharge Plan - Discharge Medications Prescriptions: Albuterol Sulfate [Ventolin Hfa] 1 puff IH Q6H PRN #1 inh PRN Reason: Shortness Of Breath Albuterol/Ipratropium [Duoneb 3 MG/3 Ml-0.5 MG/3 Ml 3 Ml] 3 ml IH Q12 PRN #1 vial PRN Reason: Shortness Of Breath RX: Aspirin [Ecotrin] 81 mg PO DAILY #14 tabec RX: Atorvastatin [Lipitor] 40 mg PO DIN #14 tab RX: Azithromycin 250 mg PO DAILY #3 tablet Methylprednisolone [Medrol Dose Pack (21 tabs)] See Taper PO DAILY #21 mg Nebulizer Accessories [Reusable Nebulizer Kit] 1 each MC Q12 PRN #1 kit PRN Reason: Shortness Of Breath RX: Nicotine 21 mg/24 hr [Nicoderm Cq] 1 each TD DAILY #14 patch - Follow Up Plan Condition: FAIR Disposition: HOME/ ROUTINE Instructions: Chronic Obstructive Pulmonary Disease (COPD), Including Emphysema, Chest Pain (DC), Exacerbation of COPD (DC) Additional Instructions: Please follow up with your primary care doctor (Dr. Díaz) within 3-5 days of hospital discharge. Please refrain from using drugs such as cocaine as well as tobacco. Please follow up with your flyer builder Dr. Self within 1 week of discharge for stress test. Please continue all medications as prescribed. This includes: 1. Aspirin (CARDIAC RISK REDUCTION) 81mg ONCE DAILY 2. Lipitor (CHOLESTEROL) 40mg ONCE DAILY 3. Azithromycin (ANTIBIOTIC) 250mg DAILY for 3 more days 4. Medrol dose pack (STEROIDS) take as directed. 5. Nebulizer with Duoneb nebulizer as needed for shortness of breath 6. Ventolin inhaler NEEDED for SHORTNESS OF BREATH 7. Nicotine patch USE ONE PATCH DAILY ANY REFILLS OF YOUR MEDICATIONS SHOULD BE REFILLED BY YOUR PRIMARY CARE DOCTOR (Dr. Díaz). If your symptoms return, please go to the nearest emergency department. Referrals: Elliott Díaz [Medical Doctor] - Truong Self MD [Staff Provider] - <Marlene Giron R - Last Filed: 03/26/18 14:32> Provider - Provider Date of Admission: 03/23/18 01:00 Attending physician: Maura Barahona MD Consults: 03/23/18 01:48 Cardiology Consult Routine Comment: Consulting Provider: Lizandro Mauro Consulting Physician: Lizandro Mauro Reason for Consult: chest pain Hospital Course - Lab Results Lab Results: Micro Results 03/23/18 10:30 Blood Blood Culture - Preliminary NO GROWTH AFTER 3 DAYS 03/23/18 11:00 Blood Blood Culture - Preliminary NO GROWTH AFTER 3 DAYS Most Recent Lab Values WBC 15.1 10^3/uL (4.5-11.0) H 03/25/18 06:30 RBC 4.36 10^6/uL (3.5-6.1) 03/25/18 06:30 Hgb 13.7 g/dL (14.0-18.0) L 03/25/18 06:30 Hct 40.7 % (42.0-52.0) L 03/25/18 06:30 MCV 93.3 fl (80.0-105.0) 03/25/18 06:30 MCH 31.4 pg (25.0-35.0) 03/25/18 06:30 MCHC 33.7 g/dl (31.0-37.0) 03/25/18 06:30 RDW 13.0 % (11.5-14.5) 03/25/18 06:30 Plt Count 207 10^3/uL (120.0-450.0) 03/25/18 06:30 MPV 9.9 fl (7.0-11.0) 03/25/18 06:30 Gran % 85.6 % (50.0-68.0) H 03/25/18 06:30 Lymph % (Auto) 10.9 % (22.0-35.0) L 03/25/18 06:30 [place] % (Auto) 3.4 % (1.0-6.0) 03/25/18 06:30 Eos % (Auto) 0.0 % (1.5-5.0) L 03/25/18 06:30 Baso % (Auto) 0.1 % (0.0-3.0) 03/25/18 06:30 Gran # 12.93 (1.4-6.5) H 03/25/18 06:30 Lymph # (Auto) 1.7 (1.2-3.4) 03/25/18 06:30 [place] # (Auto) 0.5 (0.1-0.6) 03/25/18 06:30 Eos # (Auto) 0.0 (0.0-0.7) 03/25/18 06:30 Baso # (Auto) 0.01 K/mm3 (0.0-2.0) 03/25/18 06:30 PT 11.0 SECONDS (9.4-12.5) 03/25/18 06:30 INR 0.96 03/25/18 06:30 APTT 27.3 Seconds (25.1-36.5) 03/25/18 06:30 Sodium 138 mmol/L (132-148) 03/25/18 06:30 Potassium 4.5 mmol/L (3.6-5.0) 03/25/18 06:30 Chloride 104 mmol/L (98-107) 03/25/18 06:30 Carbon Dioxide 28 mmol/L (21-33) 03/25/18 06:30 Anion Gap 11 (10-20) 03/25/18 06:30 BUN 19 mg/dL (7-21) 03/25/18 06:30 Creatinine 0.8 mg/dl (0.8-1.5) 03/25/18 06:30 Est GFR ( Amer) > 60 03/25/18 06:30 Est GFR (Non-Af Amer) > 60 03/25/18 06:30 Random Glucose 128 mg/dL (70-110) H 03/25/18 06:30 Hemoglobin A1c 5.3 % (4.2-6.5) 03/23/18 06:30 Calcium 8.8 mg/dL (8.4-10.5) 03/25/18 06:30 Phosphorus 3.7 mg/dL (2.5-4.5) 03/25/18 06:30 Magnesium 2.0 mg/dL (1.7-2.2) 03/25/18 06:30 Total Bilirubin 0.2 mg/dL (0.2-1.3) 03/25/18 06:30 AST 14 U/L (17-59) L 03/25/18 06:30 ALT 16 U/L (7-56) 03/25/18 06:30 Alkaline Phosphatase 66 U/L (38-126) 03/25/18 06:30 Troponin I < 0.01 ng/mL 03/23/18 11:00 Total Protein 6.3 g/dL (5.8-8.3) 03/25/18 06:30 Albumin 3.6 g/dL (3.0-4.8) 03/25/18 06:30 Globulin 2.7 gm/dL 03/25/18 06:30 Albumin/Globulin Ratio 1.3 (1.1-1.8) 03/25/18 06:30 Triglycerides 49 mg/dL (35-160) 03/23/18 06:30 Cholesterol 214 mg/dL (130-200) H 03/23/18 06:30 LDL Cholesterol Direct 150 mg/dL (0-129) H 03/23/18 06:30 HDL Cholesterol 46 mg/dL (29-60) 03/23/18 06:30 Thyroxine (T4) 6.1 ug/dL (5.5-11.0) 03/25/18 06:30 Total T3 0.82 ng/mL (0.97-1.69) L 03/25/18 06:30 TSH 3rd Generation 0.21 mIU/mL (0.46-4.68) L 03/23/18 06:30 Urine Opiates Screen Negative (NEGATIVE) 03/24/18 10:15 Urine Methadone Screen Negative (NEGATIVE) 03/24/18 10:15 Ur Barbiturates Screen Negative (NEGATIVE) 03/24/18 10:15 Ur Phencyclidine Scrn Negative (NEGATIVE) 03/24/18 10:15 Ur Amphetamines Screen Negative (NEGATIVE) 03/24/18 10:15 U Benzodiazepines Scrn Positive (NEGATIVE) H 03/24/18 10:15 U Oth Cocaine Metabols Positive (NEGATIVE) H 03/24/18 10:15 U Cannabinoids Screen Negative (NEGATIVE) 03/24/18 10:15 Influenza Typ A,B (EIA) Negative for flu a/b (NEGATIVE) 03/22/18 23:24 Attending/Attestation - Attestation I have personally seen and examined this patient.: Yes I have fully participated in the care of the patient.: Yes I have reviewed all pertinent clinical information, including history, physical exam and plan: Yes Notes (Text): Please note this DC summary is for 03/25/18 Patient seen and examined by me with resident 9:50AM and prior to discharge on 03/25/18. Case including discharge plan discussed with resident. Agree with above with following additions/corrections. Patient is a 57-year-old male with past medical history significant for COPD, hypertension, hyperlipidemia, tobacco abuse, and anxiety that presented to the emergency room with shortness of breath, chest pain, and chest tightness for 2 days. Please see H&P for full details. Patient was admitted with chest pain, shortness of breath, hypertension, and hyperlipidemia. Cardiology was consulted. Troponin was <0.01 x 3. TSH was 0.21. Patient was advised to have repeat thyroid function testing with his primary care doctor after the cocaine is out of his system. Total cholesterol was 214, LDL 150, HDL 46, and triglycerides were 49. UDS was positive for benzodiazepines and cocaine. Patient became agitated when cocaine was mentioned. Patient was told that he must tell his doctor he uses cocaine as beta blockers have an adverse reaction and can kill him if it is given to him. He stated he understood. Chest xray per radiologist showed no active disease. Patient was placed on nebulizer treatments and solumedrol for acute COPD exacerbation. Patient was continued on Rocephin and Zithromax. Leukocytosis likely secondary to steroids and was downtrending. Patient was counseled at length on somking cessation and nicoderm patch was given. Patient also on chronic opioids at home from is primary care doctor, patient was counseled on side effects and tapering down and stopping these medications. Patient was seen by cardiology and stress test was ordered, however, patient refused stress test and stated he would follow up with his flyer builder Dr. Self on 03/29/18. Blood cultures were negative and patient remained afebrile. Patient was feeling much better and was asking to go home. Patient was cleared for discharge by flyer builder Dr. Kendrick. Patient was discharged home. On day of discharge, patient stated he was feeling much better. Patient denied any chest pain. No shortness of breath or palpitations. Patient stated he understood he needs to quit smoking. No nausea, vomiting, or abdominal pain. No headache or dizziness. No change in vision or light headedness. No fevers or chills. No palpitations. No dysuria. No diarrhea or constipation. Physical exam: General: Awake and alert, lying in bed in no acute distress. HEENT: Normocephalic, atraumatic, Extraocular muscles intact, pupils equal and reactive, no scleral icterus. Oropharynx is pink and moist. No pharyngeal erythema or exudate appreciated. Neck is supple. Cardiovascular: Regular rhythm. Normal S1 and S2. No murmus, rubs, or gallops appreciated. Pulmonary: Normal respiratory effort. Decreased breath sounds. No rhonchi, rales, or wheezing appreciated. Gastrointestinal: Soft, nondistended. Nontender. Positive bowel sounds all 4 quadrants. No guarding. Musculoskeletal: Moves all extremities. No calf tenderness. No edema appreciated. No CVA tenderness. Central nervous system: AAO x3, CN2-12 grossly intact. Dermatologic: Skin warm and dry. Please see chart for full details. Follow up instructions: Patient to follow-up with primary care doctor within 3-5 days. Patient to follow up his flyer builder on 03/29/17 for stress test. Patient to take medications as prescribed. Patient to have repeat thryroid function testing with his primary care doctor. All instructions explained to the patient in detail. Patient both understands and agrees to all instructions. Written instructions also given. Time spent in discharging the patient including chart review, medication reconciliation, discussion with the patient, medical director/head team physician, consultants, and nursing staff was approximately 40 minutes.
--- NOTE | 2018-03-25 16:48 | PN ---
DATE: 03/23/2018 REQUESTING PHYSICIAN: Lizandro Kendrick MD REASON FOR CONSULTATION: Followup, cardiac evaluation, chest pain, acute exacerbation of COPD, possible bronchitis, COPD, hypertension, hyperlipidemia, anxiety disorder, and history of substance abuse including cocaine. The patient denies chest pain, shortness of breath, denies any palpitation. SUBJECTIVE: Not in apparent distress. PHYSICAL EXAMINATION: As follows, VITAL SIGNS: Temperature afebrile, heart rate 87, and blood pressure 127/76. HEENT: PERRLA. Extraocular muscles intact. NECK: Supple. No carotid bruit. No thyromegaly. CHEST: Clear to auscultation. HEART: S1, S2 regular. ABDOMEN: Soft. EXTREMITIES: Clubbing and cyanosis negative. LABORATORY DATA: Blood workup as follows, WBC 15.1, hemoglobin 13.7, hematocrit 40.7, and platelet count 207. Chemistry shows sodium 138, potassium 4.5, chloride 104, carbon dioxide 28, anion gap of 11, BUN 19, creatinine 0.8. Tox screen positive for benzodiazepine and cocaine. IMPRESSION AND PLAN: A 57-year-old male with past medical history significant for chronic obstructive pulmonary disease, admitted with acute exacerbation of chronic obstructive pulmonary disease, bronchitis, and complaining of chest pain. The patient is scheduled for stress test today. The patient came to the nuclear lab, and on the camera, he said he is claustrophobic and does not want to do a stress test today. The patient was scheduled a stress test lastly to [facility], explained in detail to the patient the risks, benefits, and alternative and cardiac catheterization offered. The patient wanted to go home and will call his research editor, Dr. Self, follow up with him. Does not want a stress test here, and because of claustrophobia, he does not want cardiac catheterization. Risks and benefits explained to the patient. Discussed with the team taking care of the patient. In the interim, continue the treatment of chronic obstructive pulmonary disease, continue steroid for chronic obstructive pulmonary disease, and emphasis made to the patient to follow up with [facility] research editor. The patient was scheduled last week and he will reschedule a stress test there, but does not want a stress test there. He came to stress lab and refused because he was claustrophobic nor cardiac catheterization as well. Aggressive medical treatment, possible discharge. Follow up with PMD at [facility]. Lizandro Kendrick MD
== END 2018-03-25 13:33 | disposition home or self-care (01) | DRG 88 ==
LOC: ED 23:01 → ERH 03-23 01:00 → 2RNO 03-23 02:51
PROVIDERS: ADMIT Internal Medicine; ATTEND Internal Medicine
DX: J44.1 Chronic obstructive pulmonary disease with (acute) exacerbation (principal); F14.10 Cocaine abuse, uncomplicated; J44.0 Chronic obstructive pulmonary disease with (acute) lower respiratory infection; J20.9 Acute bronchitis, unspecified; M51.26 Other intervertebral disc displacement, lumbar region; I10 Essential (primary) hypertension; E78.5 Hyperlipidemia, unspecified; F17.200 Nicotine dependence, unspecified, uncomplicated; I49.1 Atrial premature depolarization; I49.3 Ventricular premature depolarization; D72.829 Elevated white blood cell count, unspecified; T38.0X5A Adverse effect of glucocorticoids and synthetic analogues, initial encounter; Z99.81 Dependence on supplemental oxygen; Z91.19 Patient's noncompliance with other medical treatment and regimen; Z79.891 Long term (current) use of opiate analgesic

== ENCOUNTER 2018-05-10 12:49 | Outpatient (CLI) | payer OTHER | END 2018-05-10 12:50 | disposition home or self-care (01) | LOC: RAD 12:49 ==

== ENCOUNTER 2018-06-20 08:31 | Outpatient (CLI) | payer OTHER | END 2018-06-20 08:32 | disposition home or self-care (01) | LOC: RAD 08:31 ==

== ENCOUNTER 2018-08-21 11:12 | Outpatient (CLI) | payer OTHER | END 2018-08-21 11:13 | disposition home or self-care (01) | LOC: LAB 11:12 ==